=== PATIENT | male | born 1955 | race Caucasian/White ===

== ENCOUNTER → 2016-06-05 | Outpatient (CLI) | payer OTHER ==
[2016-06-05 10:45] LABS: Basophils % (A) 1 %; CH 33.4; CHCM 33.8; Eosinophils # (A) 0.5 k/uL (0-0.7); Eosinophils % (A) 7 %; HCT 45.7 % (39.0-53.0); HDW 2.58; HGB 15.3 gm/dL (13.0-17.5); Luc # (Auto) 0.23; Luc % (Auto) 3; Lymphocytes # (A) 1.8 k/uL (1.0-4.8); Lymphocytes % (A) 25 %; MCH 33.1 pg (25.0-35.0); MCHC 33.4 g/dL (31.0-37.0); MCV 99.1 fL (80.0-100.0); Mean Platelet Volume 6.5; Monocytes # (A) 0.4 k/uL (0-1.0); Monocytes % (A) 6 %; Neutrophils # (A) 4.2 k/uL (1.3-7.7); Neutrophils % (A) 59 %; RBC 4.61 m/uL (4.30-5.90); RDW 13.7 % (11.5-15.5); WBC 7.2 k/uL (3.8-10.6); WBC (Perox) 7.29
[2016-06-05 10:54] LABS: Potassium 4.5 mmol/L (3.5-5.1)
== END | disposition home or self-care (01) ==
LOC: LABPAT 09:25
PROVIDERS: ATTEND Surgery
DX: Z01.812 Encounter for preprocedural laboratory examination (principal); Z11.2 Encounter for screening for other bacterial diseases
CPT/HCPCS: 80051; 85025; 87070

== ENCOUNTER 2016-06-10 07:02 | Inpatient (IN) | payer OTHER ==
[~2016-06-10 07:02] MED LIST: DEXAMETHASONE SOD PHOSPHATE 10 MG/ML 1 ML VIAL IV ONE; HEPARIN SODIUM,PORCINE 5,000 UNIT/ML 1 ML VIAL SQ ONE; HYDROmorphone 1 MG/ML 1 ML SYRINGE IVP PRN; LIDOCAINE 1% 20 ML VIAL (10MG/ML) FOR IV START INTRADERMA PRN; MIDAZOLAM 2 MG/2 ML VIAL IV PRN; ONDANSETRON 4 MG/2 ML VIAL IVP ONE; SCOPOLAMINE 1.5MG/72HR PATCH TRANSDERM ONE; SODIUM CHLORIDE 0.9% 1,000 ML IV ONE; ceFAZolin 2 GM in SODIUM CHLORIDE 0.9% 100 ML IVPB ONE
[2016-06-10] MEDS: LACTATED RINGERS 1,000 ML IV SCH (07:28)
[2016-06-10] MEDS ORDERED: ALVIMOPAN 12 MG CAPSULE PO STA (08:11)
[2016-06-10] MEDS ORDERED: METOPROLOL TARTRATE 5 MG/5 ML VIAL IVP ONE (08:17)
[2016-06-10] MEDS ORDERED: fentaNYL (PF) 50 MCG/ML 2 ML AMP IV ONE (08:20)
[2016-06-10] MEDS ORDERED: MIDAZOLAM 2 MG/2 ML VIAL IV ONE (08:20)
[2016-06-10] MEDS ORDERED: PHENYLEPHRINE-0.9% NACL SYG 1 MG/10 ML SYRINGE ONE (08:38)
[2016-06-10] MEDS ORDERED: FUROSEMIDE 10 MG/ML 2 ML VIAL ONE (08:38)
[2016-06-10] MEDS ORDERED: KETAMINE 10 MG/ML 20 ML VIAL ONE (08:38)
[2016-06-10] MEDS ORDERED: fentaNYL (PF) 50 MCG/ML 2 ML AMP ONE (08:38)
[2016-06-10] MEDS ORDERED: NEOSTIGMINE 1 MG/ML 10 ML VIAL ONE (08:38)
[2016-06-10] MEDS ORDERED: ALBUMIN HUMAN 5% 250 ML BOTTLE IVPB ONE (08:38)
[2016-06-10] MEDS ORDERED: ePHEDrine 50 MG/ML 1 ML AMP ONE (08:38)
[2016-06-10] MEDS ORDERED: SUCCINYLCHOLINE CHLORIDE 100 MG/5 ML SYR IV ONE (08:38)
[2016-06-10] MEDS ORDERED: ceFAZolin 1,000 MG VIAL ONE (08:38)
[2016-06-10] MEDS ORDERED: GLYCOPYRROLATE 0.2 MG/ML 2 ML VIAL ONE (08:38)
[2016-06-10] MEDS ORDERED: MIDAZOLAM 2 MG/2 ML VIAL ONE (08:38)
[2016-06-10] MEDS ORDERED: HYDROmorphone (PF) 1 MG/ML ONE (08:38)
[2016-06-10] MEDS ORDERED: SODIUM BICARB 8.4% 50 ML SYR (1 MEQ/ML) ONE (08:38)
[2016-06-10] MEDS ORDERED: LABETALOL 5 MG/ML VIAL MDV ONE (08:38)
[2016-06-10] MEDS ORDERED: hydrALAZINE HCL 20 MG/ML 1 ML VIAL ONE (08:38)
[2016-06-10] MEDS ORDERED: PROPOFOL 10 MG/ML 20 ML VIAL IV ONE (08:38)
[2016-06-10] MEDS ORDERED: ROCURONIUM BROMIDE 10 MG/ML 10 ML VIAL IV ONE (08:38)
[2016-06-10] MEDS ORDERED: LACTATED RINGERS 1,000 ML IV ONE ×4 (09:00→13:48)
[2016-06-10] MEDS ORDERED: NALOXONE 0.4 MG/ML 1 ML VIAL IV PRN (11:17)
[2016-06-10] MEDS ORDERED: BUPIVACAINE (PF) 0.5% 31.3 ML, HYDROmorphone 5 MG in SODIUM CHLORIDE 0.9% 216 ML EPIDURAL PRN (11:17)
[2016-06-10 15:15] LABS: Basophils % (A) 0 %; CH 33.4; CHCM 32.6; Eosinophils % (A) 0 %; HCT 44.8 % (39.0-53.0); HDW 2.44; HGB 14.3 gm/dL (13.0-17.5); Luc # (Auto) 0.07; Luc % (Auto) 1; Lymphocytes # (A) 0.4 k/uL (1.0-4.8); Lymphocytes % (A) 6 %; MCH 32.9 pg (25.0-35.0); MCHC 31.9 g/dL (31.0-37.0); MCV 102.9 fL (80.0-100.0); Macrocytosis Slight; Monocytes # (A) 0.4 k/uL (0-1.0); Monocytes % (A) 5 %; Neutrophils # (A) 6.7 k/uL (1.3-7.7); Neutrophils % (A) 88 %; RBC 4.35 m/uL (4.30-5.90); RDW 14.1 % (11.5-15.5); WBC 7.6 k/uL (3.8-10.6); WBC (Perox) 7.85
[2016-06-10 15:17] LABS: ABG Base Excess -8.4 mmol/L; ABG HCO3 18 mmol/L (21-25); ABG Oxygen Saturation 99.2 % (94-97); ABG PCO2 44 mmHg (35-45); ABG PH 7.24 (7.35-7.45); ABG PO2 349 mmHg (83-108)
[2016-06-10 15:20] LABS: ALT 29 U/L (21-72); AST 19 U/L (17-59); Alkaline Phosphatase 52 U/L (38-126); Anion Gap 11 mmol/L; Blood Urea Nitrogen 23 mg/dL (9-20); Calcium 7.6 mg/dL (8.4-10.2); Carbon Dioxide 22 mmol/L (22-30); Chloride 107 mmol/L (98-107); Glucose 146 mg/dL (74-99); Non-African American GFR(MDRD) >60 (>60 ml/min/1.73 sqM); Potassium 4.6 mmol/L (3.5-5.1); Sodium 140 mmol/L (137-145); Total Bilirubin 0.5 mg/dL (0.2-1.3); Total Protein 5.6 g/dL (6.3-8.2)
[2016-06-10] MEDS ORDERED: BENZOCAINE/MENTHOL LOZENG 1 EACH LOZENGE MUCOUS MEM PRN (18:43)
--- NOTE | 2016-06-10 18:56 | P.OP ---
Date of Procedure: 06/10/16 Preoperative Diagnosis: Incisional hernia, right inguinal hernia Postoperative Diagnosis: Incisional hernia, unilateral inguinal hernia, left cord lipoma Procedure(s) Performed: 1-Exploratory laparotomy, 2-lysis of adhesions, 3-reduction of inguinal hernia contents (small bowel ) 4-repair of incisional and inguinal hernia with 2 (30 x 30 cm) meshes 5-Bilateral myofascial flap advancement 6-Mobilization of the urinary bladder 7- Placement of harrison catheter ( perforemed by Dr Mabry. 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 bilateral myofascial flaps were created,and urinary bladder was mobilized Posterior fascia closed with 2 0 PDS bard soft mesh was placed. mesh secured with pubic bone, transfascial sutures and superior stitch with the fascia 2 drains placed above the mesh. Anterior fascia closed with 1 stratafix Small subcutaneous flaps created for skin closure Right upper drain sutured with ethibond is subcutaneous Prevena dressing placed. As Ms. 61-year-old male who had a previous attempted inguinal hernia repair that required bowel resection. Ultimately that led to an incisional hernia and a very large inguinal hernia that contained significant amount of small bowel. His been going on for multiple years. He presented to me for hernia repair. After counseling, weight loss of approximately 30 pounds, quitting smoking the patient was cleared by cardiology and deemed ready for surgery. Is brought for the surgery on 06/10/2016. Was identified in the preop operating holding area informed consent was obtained. Risks included injury to the bowel bowel resection and colostomy creation injury to the testicle possible removal of the testicle. The plan was to do both incisional hernia and inguinal hernia to the abdominal approach. The details were explained to the patient patient understood. He was taken the operating room placed in supine position given general anesthesia with endotracheal intubation. Appropriate IV antibiotics have been given as well as from her prophylaxis. This time attention was turned to placing the Harrison catheter. The penis was not properly visible due to the very large size of the inguinal hernia. Once the penis was identified initial attempts were made to place the catheter but they were not possible. At this time intraoperative consultation from Dr. Mohamud came or was made any kind the placed the Harrison catheter please see his dictation for this part was Harrison catheter had been placed the abdomen prepped and draped in the usual sterile surgical fashion extending from the nipple line all the way to the thighs including the scrotum. Midline was midline was identified and incision was made superior to the previous surgery site with the help of a 10 blade the skin and subcu tissue all the way to the fascia and the abdominal cavity was entered. Incisions Superior to the xiphisternum and inferiorly all the way down to the pubis avoiding intra-abdominal adhesions which were taken down so as to identify structures in the inside. Once that was done and with appropriate retraction attention was turned towards the right lower quadrant where there was an inguinal hernia. In spite of pressure from the outside was not being reduced. At this time the bowel was gently pulled on and completely delivered thus delivering approximately a third of the small bowel from this hernia. The entire small bowel was run and it was all viable without any problems there is minimal scar tissue in the base there were no other lesions that needed to be taken down. At this time a Bookwalter was placed for retraction. Attention was turned to the right rectus and incision was made 1.5 cm lateral to the linea alba on the abdominal side of the rectus. Once the fascia was incised and the rectus was exposed and this was extended all the way superiorly to this point of confluence and inferiorly to the point where there was inferior to the semilunar line. Once the posterior rectus sheath had been identified like this muscle was gently swept away us identify the neurovascular bundles. Half centimeter medial to the neurovascular bundle incision was made with the help of electrocautery thus cutting through posterior leaflet of the internal oblique and exposing the transversalis fascia and muscle. Once this plane was entered was completed it was opened up and meticulous E dissected off all the way from the xiphisternum down to the pubic tubercle preperitoneal plane was created in the right lower quadrant/identify the hernia sac which was mobilized and pulled upwards and dissected free of the cord structures. It was inverted and electronically cord. It into the midline sutures. Once the right- sided been appropriately mobilized it was noted that there was still some tension and therefore the urinary bladder had to be mobilized for the inferior flap to be pulled up. Attention was turned to the left side where after entering the retrorectus for plane in a fashion similar to the right transverse abdominis release was also performed on that side a similar fashion to the right extending all the way superiorly to the point of confluence. And inferiorly to the pubic tubercle and bone. Once that had been done the bowel was run again his major that there was no further adhesions. Posterior fascia was closed in a running fashion using 2-0 PDS. Any holes in the peritoneum were closed with 2 and 3-0 Vicryl. 30 x 30 bard mesh was then introduced in the upper part it was sutured to the uncinate superiorly. Transverse sutures placed in the side and the right and left upper quadrants. A second 30 x 30 bard mesh in a evelyn form was placed inferiorly slower lower pointed end was sutured to the pubic tubercle lateral laterally to extended all the way to the psoas muscle transfacial sutures were placed laterally. This piece of mesh was also sutured to the superior piece of mesh with interrupted PDS sutures. Transfacial sutures were pulled and sutured tightly with the mesh being in appropriate position once that was done midline incision was closed with running oh Stratus effects. The hernia sac and the lower part of the abdomen had to be excised for this to be completed. Prior to closure pains was placed on top of the mesh were tacked the right and left lower quadrants. To be able to close the skin and skin flaps were created subcu drainage drain was placed and brought out through the right lower quadrant above the other drain. The midline was stapled shut. WERE connected to SAMPSON bulbs. Previna dressing was applied. The patient was left on the ventilator as the length the procedure was very long. Harrison catheter and NG tube was left in place. Patient's urine output intraoperatively was little low but postoperatively immediately. He started putting out good amount of urine. He was taken to recovery room in stable but critical condition
--- NOTE | 2016-06-10 19:30 | PCN ---
DATE OF PROCEDURE: 06/10/2016 POSTOPERATIVE DIAGNOSIS: Inability to insert urethral catheter. POSTOPERATIVE DIAGNOSIS: Inability to insert urethral catheter secondary to phimosis and meatal stenosis. PROCEDURE: Dilation of meatal stenosis and placement of urethral catheter. The patient is a 61-year-old male with an umbilical and inguinal hernia who is undergoing hernia repair performed by Dr. Mercedes this morning. A catheter was attempted to be placed prior to the procedure to decompress the bladder, but this proved impossible, as it was impossible to visualize the urethral meatus directly or advance a 14 Yemeni catheter through it. Urologic consultation was obtained after the patient had been given anesthesia and was supine on the operating room table. PROCEDURE: The patient had previously been prepped with Betadine solution and was draped in a sterile fashion. The patient had moderate phimosis and the stenosis at the distal foreskin was gently spread with a hemostat. It was possible to identify the urethral meatus visually, but attempts at passage of a 14 Yemeni catheter proved impossible. The meatus was then gently dilated with a hemostat. A 0.035 straight Glidewire was advanced through the urethral meatus and up into the bladder. A 14 Yemeni Garcia catheter was modified with a slit at its end and the catheter was advanced over the Glidewire through the stenotic area at the meatus and into the bladder. Clear urine drained from the bladder. The patient tolerated procedure well. The remainder of the procedure will be performed by Dr. Mercedes. The patient has an epidural anesthetic and it is anticipated that the catheter will remain in place until the anesthetic has worn off. OSKAR
[2016-06-10 19:44] LABS: ABG Base Excess -5.6 mmol/L; ABG HCO3 26 mmol/L (21-25); ABG Oxygen Saturation 97.6 % (94-97); ABG PCO2 83 mmHg (35-45); ABG PH 7.13 (7.35-7.45); ABG PO2 119 mmHg (83-108)
[2016-06-10] MEDS ORDERED: MIDAZOLAM 2 MG/2 ML VIAL IVP ONE ×2 (20:25→21:20)
[2016-06-10] MEDS ORDERED: FAMOTIDINE 20 MG/2 ML VIAL IVP ONE (21:00)
[2016-06-10 21:09] LABS: ABG Base Excess -6.5 mmol/L; ABG HCO3 21 mmol/L (21-25); ABG PCO2 52 mmHg (35-45); ABG PH 7.23 (7.35-7.45); ABG PO2 82 mmHg (83-108)
--- NOTE | 2016-06-10 21:13 | XR ---
EXAMINATION TYPE: XR chest 1V portable DATE OF EXAM: 06/10/2016 8:48 PM COMPARISON: 04/13/2012 HISTORY: Tube placement TECHNIQUE: Single frontal view of the chest is obtained. FINDINGS: Heart and mediastinum appear normal. Lungs are clear. Endotracheal tube and nasogastric tu be appear in good position. There are chest leads. Bony thorax is intact. IMPRESSION: Tubing is in good position. There is clearing of infiltrate in both lower lobes compared to old exam. No heart failure.
[2016-06-10 21:39] LABS: Glucose,Whole Blood 174 mg/dL (75-99)
[2016-06-10] MEDS: PROPOFOL 500 MG in EMPTY BAG 1 BAG IV SCH ×2 (21:41→23:16)
[2016-06-10] MEDS ORDERED: HEPARIN SODIUM,PORCINE 5,000 UNIT/ML 1 ML VIAL SQ ONE (23:00)
[2016-06-10] MEDS: IPRATROPIUM-ALBUTEROL 3 ML NEB INHALATION SCH (23:17)
[2016-06-11 02:11] LABS: Glucose,Whole Blood 135 mg/dL (75-99)
[2016-06-11] MEDS ORDERED: INSULIN LISPRO (humaLOG) 300 UNIT/3 ML VIAL SQ ONE (02:13)
[2016-06-11] MEDS: IPRATROPIUM-ALBUTEROL 3 ML NEB INHALATION SCH ×7 (03:10→23:30)
[2016-06-11 05:33] LABS: Basophils % (A) 0 %; CHCM 32.6; Eosinophils % (A) 0 %; HCT 47.3 % (39.0-53.0); HDW 2.45; HGB 15.3 gm/dL (13.0-17.5); Luc # (Auto) 0.17; Luc % (Auto) 3; Lymphocytes # (A) 0.5 k/uL (1.0-4.8); Lymphocytes % (A) 7 %; MCH 32.9 pg (25.0-35.0); MCHC 32.3 g/dL (31.0-37.0); Macrocytosis Slight; Mean Platelet Volume 6.7; Monocytes # (A) 0.4 k/uL (0-1.0); Monocytes % (A) 6 %; Neutrophils # (A) 5.8 k/uL (1.3-7.7); Neutrophils % (A) 84 %; RBC 4.63 m/uL (4.30-5.90); RDW 14.3 % (11.5-15.5); WBC 6.9 k/uL (3.8-10.6); WBC (Perox) 6.96
[2016-06-11 06:15] LABS: Calcium 8.2 mg/dL (8.4-10.2); Potassium 5.4 mmol/L (3.5-5.1)
[2016-06-11] MEDS ORDERED: PROPOFOL 10 MG/ML 50 ML VIAL IV ONE ×2 (07:08→10:28)
[2016-06-11] MEDS: amLODIPine 10 MG TAB PO SCH (07:51)
--- NOTE | 2016-06-11 07:54 | XR ---
EXAMINATION TYPE: XR chest 1V portable DATE OF EXAM: 06/11/2016 7:04 AM COMPARISON: 06/10/2016 INDICATION: Difficulty breathing TECHNIQUE: Single frontal view of the chest is obtained. FINDINGS: The heart size is normal. The pulmonary vasculature is normal. The lungs are clear. Endotracheal tube is present with tip above the allyn. Nasogastric tube transverses the thorax. IMPRESSION: 1. No acute pulmonary process.
[2016-06-11] MEDS ORDERED: HEPARIN SODIUM,PORCINE 5,000 UNIT/ML 1 ML VIAL SQ SCH (08:00)
[2016-06-11] MEDS ORDERED: FAMOTIDINE 20 MG/2 ML VIAL IV SCH (09:00)
[2016-06-11] MEDS ORDERED: ALVIMOPAN 12 MG CAPSULE PO SCH (09:00)
[2016-06-11] MEDS: ATENOLOL 50 MG TAB PO SCH (09:21)
[2016-06-11 09:48] LABS: Glucose,Whole Blood 131 mg/dL (75-99)
--- NOTE | 2016-06-11 10:03 | P.CNPUL ---
History of Present Illness Consult date: 06/11/16 Reason for consult: other Chief complaint: Postoperative respiratory failure and ventilator management History of present illness: 61-year-old male who I'm asked to see in the recovery/extended stay area. He apparently underwent a prolonged surgery yesterday for abdominal hernia repair. He did have a exploratory laparotomy with mesh placement. The patient was on the ventilator. I was called throughout the night for vent settings and other things to take care of this patient. Anyway the patient still down in the right extended stay area. We made some vent changes this morning. Blood gases were noted this morning. The patient remains on propofol for sedation and IV fluids. The surgery was done by one of the general surgeons. No H&P on the chart as yet. He appears to have a history of hypertension because he was on amlodipine and atenolol at home. He has no known ALLERGIES. His medications here are noted. Include DuoNeb nebs every 4 hours and Coreg amlodipine and atenolol Cepacol spray bupivacaine famotidine heparin lactated Ringer's lidocaine Narcan and propofol for sedation. Review of Systems ROS unobtainable: due to endotracheal tube Past Medical History Past Medical History: Hypertension History of Any Multi-Drug Resistant Organisms: None Reported Past Surgical History: Hernia Repair Past Anesthesia/Blood Transfusion Reactions: No Reported Reaction Past Psychological History: No Psychological Hx Reported Smoking Status: Former smoker Past Alcohol Use History: None Reported Additional Past Alcohol Use History / Comment(s): quit smoking 2016, 2 PPD for 50 yrs Past Drug Use History: None Reported - Past Family History Mother Family Medical History: No Reported History Medications and Allergies Home Medications Medication Instructions Recorded Confirmed Type Atenolol [Tenormin] 50 mg PO DAILY 06/04/16 06/10/16 History amLODIPine BESYLATE [Norvasc] 10 mg PO DAILY 06/04/16 06/10/16 History Allergies Allergy/AdvReac Type Severity Reaction Status Date / Time No Known Allergies Allergy Verified 06/10/16 07:12 Physical Exam Osteopathic Statement: *. No significant issues noted on an osteopathic structural exam other than those noted in the History and Physical/Consult. Vitals: Vital Signs Temp Pulse Pulse Resp BP BP Pulse Ox 06/11/16 09:30 77 28 H 151/63 141/74 96 06/11/16 08:30 77 28 H 101/48 111/72 99 04/20/17 08:24 77 06/11/16 07:30 78 28 H 114/71 102/49 99 06/11/16 06:30 80 27 H 100/47 117/63 97 06/11/16 05:39 97 F L 77 24 106/48 119/65 98 06/11/16 03:58 77 24 107/48 111/66 97 06/11/16 03:08 100 06/11/16 02:56 98 06/11/16 02:44 83 24 113/60 117/53 99 06/11/16 02:00 97 F L 83 24 115/52 115/60 99 06/11/16 01:00 82 24 119/53 111/67 99 06/11/16 00:01 80 24 112/67 112/78 99 06/10/16 23:30 81 24 116/53 111/63 99 06/10/16 23:28 82 06/10/16 23:17 81 06/10/16 22:30 82 16 113/50 112/64 94 L 06/10/16 21:30 83 16 110/63 122/65 92 L 06/10/16 20:30 82 16 117/65 126/78 92 L 06/10/16 20:15 80 16 124/61 128/65 93 L 06/10/16 20:00 82 16 119/60 128/76 94 L 06/10/16 19:45 82 16 118/62 130/76 92 L 06/10/16 19:30 80 14 122/60 133/59 90 L 06/10/16 19:09 99 F 82 15 120/56 133/76 92 L Intake and Output 06/10/16 06/11/16 06/11/16 22:59 06:59 14:59 Intake Total 600 140 Output Total 450 550 Balance 150 -410 Intake: IV 600 140 Output: Urine 300 550 Estimated Blood Loss 150 The patient is currently sedated. Oral gastric tube and endotracheal tube noted. HEENT examination is grossly unremarkable. Mucous membranes are moist. Neck supple. Full range of motion. No adenopathy. Cardio vascular examination reveals regular rhythm rate. S1-S2 normal. No distinct murmur noted. Lungs reveal relatively clear breath sounds. A few scattered rhonchi. Abdomen is obese. Bowel sounds are heard. Abdominal binder in place. Extremities are intact. No cyanosis noted. Skin without rash or lesion. Because of his sedation, neurologic examination cannot be adequately performed. Results - Laboratory Findings CBC and BMP: 06/11/16 05:00 06/11/16 05:00 ABG ABG pH 7.23 (7.35-7.45) L 06/10/16 20:45 ABG pCO2 52 mmHg (35-45) H 06/10/16 20:45 ABG pO2 82 mmHg (83-108) L 06/10/16 20:45 ABG O2 Saturation 96.0 % (94-97) 06/10/16 20:45 Abnormal lab findings: Abnormal Labs 06/10/16 06/10/16 06/10/16 14:35 14:35 14:35 MCV 102.9 H Lymphocytes # 0.4 L ABG pH 7.24 L ABG pCO2 ABG pO2 349 H ABG HCO3 18 L ABG O2 Saturation 99.2 H ABG Hematocrit Potassium BUN 23 H Creatinine Glucose 146 H POC Glucose (mg/dL) Calcium 7.6 L Total Protein 5.6 L 06/10/16 06/10/16 06/10/16 19:35 20:45 21:19 MCV Lymphocytes # ABG pH 7.13 L* 7.23 L ABG pCO2 83 H* 52 H ABG pO2 119 H 82 L ABG HCO3 26 H ABG O2 Saturation 97.6 H ABG Hematocrit 48 H Potassium BUN Creatinine Glucose POC Glucose (mg/dL) 174 H Calcium Total Protein 06/11/16 06/11/16 06/11/16 02:09 05:00 05:00 MCV 102.0 H Lymphocytes # 0.5 L ABG pH ABG pCO2 ABG pO2 ABG HCO3 ABG O2 Saturation ABG Hematocrit Potassium 5.4 H BUN 35 H Creatinine 1.70 H Glucose 142 H POC Glucose (mg/dL) 135 H Calcium 8.2 L Total Protein 06/11/16 09:41 MCV Lymphocytes # ABG pH ABG pCO2 ABG pO2 ABG HCO3 ABG O2 Saturation ABG Hematocrit Potassium BUN Creatinine Glucose POC Glucose (mg/dL) 131 H Calcium Total Protein - Diagnostic Findings Chest x-ray: image reviewed Assessment and Plan (1) Hypoxemic respiratory failure, chronic Status: Acute (2) Postoperative respiratory failure Status: Acute (3) Hypertension Status: Acute (4) Status post hernia repair Status: Acute Plan: Plan dated 06/11/2016 The patient will be transferred up to the ICU soon as a bed becomes available. We'll continue to follow him closely. We may to been changes this morning. We' ll repeat the blood gases. He is on updrafts. Propofol for sedation. He is getting IV fluids. We'll work closely with the surgeons to see if we can get this patient to this episode. Time with Patient: Greater than 30
[2016-06-11] MEDS ORDERED: BENZOCAINE/MENTHOL LOZENG 1 EACH LOZENGE MUCOUS MEM PRN (10:09)
--- NOTE | 2016-06-11 10:22 | P.GSHP ---
History of Present Illness H&P Date: 06/11/16 Chief Complaint: Swelling in the right groin and anterior abdominal wall Patient presented to me in january 2016 with worsening swelling of the groin. He had a previous attempt at inguinal hernia repair at which time an exploratory laparotomy with bowel resection was performed. The inguinal hernia swelling has been worsening progressively over the last few years. He is also developed swelling and herniation in the midline smokes 2 packs per day. He is known history of previous aspergillosis. He has not had any symptoms of bowel obstruction the past. Over a period of 3 months the patient underwent approximately 40 pounds weight loss. He quit smoking and was smoke-free for 2 months prior to the surgery. He is evaluated with a tieing machine operator and was cleared for this surgery with only being on antihypertensive medications. He has never had any problems with physical activity except being restricted by his significant hernia. The patient underwent exploratory laparotomy, bilateral transversus abdominous release and myofascial advancement so as to accommodate for the bowel which was reduced from the large scrotal hernia which was also reduced. Intraoperatively the patient's urine output was low but without immediately postoperatively. He was not extubated and has been on the vent support overnight. He still sedated on propofol's morning. - Constitutional Constitutional: Reports chronic pain, Denies anorexia, Denies lethargy, Denies malaise, Denies night sweats - EENT Eyes: denies blurred vision, denies pain Ears, nose, mouth and throat: Denies headache, Denies sore throat - Respiratory Respiratory: Reports cough, Denies congestion, Denies dyspnea - Gastrointestinal Gastrointestinal: Reports abdominal pain, Reports nausea, Denies vomiting - Genitourinary (Male) Genitourinary: Denies dysuria, Denies hematuria - Musculoskeletal Musculoskeletal: Denies myalgias - Integumentary Integumentary: Denies pruritus, Denies rash Past Medical History Past Medical History: Hypertension Additional Past Medical History / Comment(s): Previous history of exploratory laparotomy at the time of inguinal hernia repair History of Any Multi-Drug Resistant Organisms: None Reported Past Surgical History: Hernia Repair Past Anesthesia/Blood Transfusion Reactions: No Reported Reaction Past Psychological History: No Psychological Hx Reported Smoking Status: Former smoker Past Alcohol Use History: None Reported Additional Past Alcohol Use History / Comment(s): quit smoking 2016, 2 PPD for 50 yrs Past Drug Use History: None Reported - Past Family History Mother Family Medical History: No Reported History Medications and Allergies Home Medications Medication Instructions Recorded Confirmed Type Atenolol [Tenormin] 50 mg PO DAILY 06/04/16 06/10/16 History amLODIPine BESYLATE [Norvasc] 10 mg PO DAILY 06/04/16 06/10/16 History Allergies Allergy/AdvReac Type Severity Reaction Status Date / Time No Known Allergies Allergy Verified 06/10/16 07:12 Surgical - Exam Vital Signs Temp Pulse Resp BP Pulse Ox 97.1 F L 89 16 160/107 93 L 06/10/16 07:10 06/10/16 07:10 06/10/16 07:10 06/10/16 07:10 06/10/16 07:10 - General well developed, well nourished, no distress - Eyes PERRL, no icteric, no deviation - ENT normal pinna, normal nares, normal mucosa, no hearing loss - Neck no masses, trachea midline - Respiratory normal respiratory effort, clear to auscultation - Cardiovascular Rhythm: regular - Abdomen Patient is soft abdomen with significant diastases and midline incision in the lower part. He has a very large incarcerated right inguinal hernia and I cannot appreciate and there is a hernia not on the left side because the whole lower pubic area extends and is swollen up and there is a very large swollen scrotum without any injury or decubitus. The midline incision and the fascial margins are tender but reducible. When the patient is asked to sit up its very prominent Results - Labs 06/11/16 05:00 06/11/16 05:00 Abnormal Lab Results - Last 24 Hours (Table) 06/10/16 06/10/16 06/10/16 Range/Units 14:35 14:35 14:35 MCV 102.9 H (80.0-100.0) fL Lymphocytes # 0.4 L (1.0-4.8) k/uL ABG pH 7.24 L (7.35-7.45) ABG pCO2 (35-45) mmHg ABG pO2 349 H (83-108) mmHg ABG HCO3 18 L (21-25) mmol/L ABG O2 Saturation 99.2 H (94-97) % ABG Hematocrit (34.0-46.0) % Potassium (3.5-5.1) mmol/L BUN 23 H (9-20) mg/dL Creatinine (0.66-1.25) mg/dL Glucose 146 H (74-99) mg/dL POC Glucose (mg/dL) (75-99) mg/dL Calcium 7.6 L (8.4-10.2) mg/dL Total Protein 5.6 L (6.3-8.2) g/dL 06/10/16 06/10/16 06/10/16 Range/Units 19:35 20:45 21:19 MCV (80.0-100.0) fL Lymphocytes # (1.0-4.8) k/uL ABG pH 7.13 L* 7.23 L (7.35-7.45) ABG pCO2 83 H* 52 H (35-45) mmHg ABG pO2 119 H 82 L (83-108) mmHg ABG HCO3 26 H (21-25) mmol/L ABG O2 Saturation 97.6 H (94-97) % ABG Hematocrit 48 H (34.0-46.0) % Potassium (3.5-5.1) mmol/L BUN (9-20) mg/dL Creatinine (0.66-1.25) mg/dL Glucose (74-99) mg/dL POC Glucose (mg/dL) 174 H (75-99) mg/dL Calcium (8.4-10.2) mg/dL Total Protein (6.3-8.2) g/dL 06/11/16 06/11/16 06/11/16 Range/Units 02:09 05:00 05:00 MCV 102.0 H (80.0-100.0) fL Lymphocytes # 0.5 L (1.0-4.8) k/uL ABG pH (7.35-7.45) ABG pCO2 (35-45) mmHg ABG pO2 (83-108) mmHg ABG HCO3 (21-25) mmol/L ABG O2 Saturation (94-97) % ABG Hematocrit (34.0-46.0) % Potassium 5.4 H (3.5-5.1) mmol/L BUN 35 H (9-20) mg/dL Creatinine 1.70 H (0.66-1.25) mg/dL Glucose 142 H (74-99) mg/dL POC Glucose (mg/dL) 135 H (75-99) mg/dL Calcium 8.2 L (8.4-10.2) mg/dL Total Protein (6.3-8.2) g/dL 06/11/16 Range/Units 09:41 MCV (80.0-100.0) fL Lymphocytes # (1.0-4.8) k/uL ABG pH (7.35-7.45) ABG pCO2 (35-45) mmHg ABG pO2 (83-108) mmHg ABG HCO3 (21-25) mmol/L ABG O2 Saturation (94-97) % ABG Hematocrit (34.0-46.0) % Potassium (3.5-5.1) mmol/L BUN (9-20) mg/dL Creatinine (0.66-1.25) mg/dL Glucose (74-99) mg/dL POC Glucose (mg/dL) 131 H (75-99) mg/dL Calcium (8.4-10.2) mg/dL Total Protein (6.3-8.2) g/dL Diabetes panel 06/10/16 06/11/16 Range/Units 14:35 05:00 Sodium 140 139 (137-145) mmol/L Potassium 4.6 5.4 H (3.5-5.1) mmol/L Chloride 107 105 (98-107) mmol/L Carbon Dioxide 22 26 (22-30) mmol/L BUN 23 H 35 H (9-20) mg/dL Creatinine 1.23 1.70 H (0.66-1.25) mg/dL Glucose 146 H 142 H (74-99) mg/dL Calcium 7.6 L 8.2 L (8.4-10.2) mg/dL AST 19 (17-59) U/L ALT 29 (21-72) U/L Alkaline Phosphatase 52 (38-126) U/L Total Protein 5.6 L (6.3-8.2) g/dL Albumin 3.5 (3.5-5.0) g/dL Calcium panel 06/10/16 06/11/16 Range/Units 14:35 05:00 Calcium 7.6 L 8.2 L (8.4-10.2) mg/dL Albumin 3.5 (3.5-5.0) g/dL Pituitary panel 06/10/16 06/11/16 Range/Units 14:35 05:00 Sodium 140 139 (137-145) mmol/L Potassium 4.6 5.4 H (3.5-5.1) mmol/L Chloride 107 105 (98-107) mmol/L Carbon Dioxide 22 26 (22-30) mmol/L BUN 23 H 35 H (9-20) mg/dL Creatinine 1.23 1.70 H (0.66-1.25) mg/dL Glucose 146 H 142 H (74-99) mg/dL Calcium 7.6 L 8.2 L (8.4-10.2) mg/dL Adrenal panel 06/10/16 06/11/16 Range/Units 14:35 05:00 Sodium 140 139 (137-145) mmol/L Potassium 4.6 5.4 H (3.5-5.1) mmol/L Chloride 107 105 (98-107) mmol/L Carbon Dioxide 22 26 (22-30) mmol/L BUN 23 H 35 H (9-20) mg/dL Creatinine 1.23 1.70 H (0.66-1.25) mg/dL Glucose 146 H 142 H (74-99) mg/dL Calcium 7.6 L 8.2 L (8.4-10.2) mg/dL Total Bilirubin 0.5 (0.2-1.3) mg/dL AST 19 (17-59) U/L ALT 29 (21-72) U/L Alkaline Phosphatase 52 (38-126) U/L Total Protein 5.6 L (6.3-8.2) g/dL Albumin 3.5 (3.5-5.0) g/dL - Imaging Additional studies: 80 scan of the abdomen and pelvis was done and it showed large diastases with herniation measuring 11 x 14 cm in the midline, the patient had 20 cm right scrotal hernia containing approximately third of the small bowel Assessment and Plan (1) Incisional hernia Status: Acute (2) Inguinal hernia Status: Acute (3) Hypertension Status: Acute Plan: This H&P is being dictated after the surgery because there was no other in the chart except my office dictation. At this point the patient was intubated on the vent status post hernia repair. His urine output has been good. His be adequate and has been noted to go up a bit probably prerenal ischemia. Management of the ventilation management per Dr. De La Cruz. From the surgical standpoint appropriate drainage of the JPs was noted 40 mL of serous sinus bilaterally. Prerenal dressing is in place. It is not soaked. Garcia cath change in place. Medical management per Dr. Adan and Dr. Hopkins
[2016-06-11 11:16] LABS: Calcium 8.1 mg/dL (8.4-10.2); Phosphorous 4.1 mg/dL (2.5-4.5); Potassium 4.8 mmol/L (3.5-5.1)
[2016-06-11] MEDS: ENOXAPARIN 40 MG/0.4 ML SYRINGE SQ SCH (12:01)
[2016-06-11 12:06] LABS: Glucose,Whole Blood 140 mg/dL (75-99)
[2016-06-11 12:32] LABS: Total Bilirubin 0.6 mg/dL (0.2-1.3); Total Protein 5.5 g/dL (6.3-8.2)
[2016-06-11] MEDS ORDERED: MIDAZOLAM 2 MG/2 ML VIAL IVP ONE (14:00)
[2016-06-11] MEDS: LACTATED RINGERS 1,000 ML IV SCH (14:18)
[2016-06-11 18:10] LABS: Glucose,Whole Blood 109 mg/dL (75-99)
[2016-06-11] MEDS: ALVIMOPAN 12 MG CAPSULE PO SCH ×2 (20:20→20:57)
[2016-06-11] MEDS: PROPOFOL 500 MG in EMPTY BAG 1 BAG IV SCH ×3 (20:20→23:49)
[2016-06-11] MEDS: CHLORHEXIDINE GLUCONATE 15 ML CUP MUCOUS MEM SCH (20:39)
--- NOTE | 2016-06-11 21:50 | CONS ---
DATE OF CONSULTATION: 06/10/2016 REASON FOR CONSULTATION: Medical management requested Dr. Mercedes. CONSULTATION: This is a 61-year-old patient who underwent large abdominal hernia repair ( ) surgery by Dr. Mercedes. Patient has [address] and a wound V.A.C. in place. Post procedure the patient is in the ICU on the ventilator with FiO2 of 50 and PEEP of 5; also on propofol. Patient's only known history is that of hypertension and possibly COPD. Patient has been a long-standing smoker. REVIEW OF SYSTEMS: Patient is intubated. PAST MEDICAL HISTORY: ( ) COPD, hypertension. PAST SURGICAL HISTORY: Hernia repair. HOME MEDICATIONS: 1. Norvasc 10 mg daily. 2. Tenormin 50 mg a day. ALLERGIES: NONE. SOCIAL HISTORY: Patient smoked 2 packs a day for 50 years; stopped sometime earlier in the year. FAMILY HISTORY: Cannot obtain. On examination, temperature 97, pulse 86, respiration 28, blood pressure 124/60, pulse ox 97% on ventilator. GENERAL APPEARANCE: Lying in bed. Intubated. EYES: Pupils equal. Conjunctivae normal. HEENT: Endotracheal tube in place. NECK: JVD not raised. Mass not palpable. RESPIRATORY: Effort normal. LUNGS: Diminished breath sounds. CARDIOVASCULAR: First and second sounds normal. No edema. ABDOMEN: Dressing in place with a wound V.A.C. in place with [address] Liver and spleen not palpable. LYMPHATIC: No lymph node palpable in neck or axillae. PSYCHIATRY: Unable to assess. NEUROLOGICAL: Pupils equal. Does respond to pain. INVESTIGATIONS: White count 7.6, hemoglobin 14.3. Potassium 4.6. BUN 23, creatinine 1.23. Chest x-ray: nil acute. ASSESSMENT: 1. Status post abdominal/inguinal hernia repair, open type, with [address] and wound V[address]A.C. in place. 2. Chronic obstructive pulmonary disease in an ex-smoker. 3. Essential hypertension. 4. Postoperative on ventilator support. PLAN: Patient is put back on Norvasc and Tenormin, put on breathing treatments, getting lactated Ringer's and propofol. No family is still at the bedside. Will follow closely. Thank you, Dr. Mercedes.
[2016-06-12 00:21] LABS: Glucose,Whole Blood 104 mg/dL (75-99)
[2016-06-12] MEDS: PROPOFOL 500 MG in EMPTY BAG 1 BAG IV SCH (01:51)
[2016-06-12] MEDS: IPRATROPIUM-ALBUTEROL 3 ML NEB INHALATION SCH ×2 (03:45→09:18)
[2016-06-12 04:18] LABS: Basophils % (A) 0 %; CHCM 32.7; Eosinophils % (A) 0 %; HCT 40.3 % (39.0-53.0); HDW 2.42; HGB 12.9 gm/dL (13.0-17.5); Luc # (Auto) 0.14; Luc % (Auto) 3; Lymphocytes # (A) 0.5 k/uL (1.0-4.8); Lymphocytes % (A) 10 %; MCH 32.5 pg (25.0-35.0); MCV 101.7 fL (80.0-100.0); Macrocytosis Slight; Mean Platelet Volume 7.4; Monocytes # (A) 0.3 k/uL (0-1.0); Monocytes % (A) 6 %; Neutrophils % (A) 80 %; RBC 3.97 m/uL (4.30-5.90); RDW 14.3 % (11.5-15.5)
[2016-06-12 04:53] LABS: ALT 36 U/L (21-72); AST 83 U/L (17-59); Alkaline Phosphatase 49 U/L (38-126); Anion Gap 5 mmol/L; Blood Urea Nitrogen 35 mg/dL (9-20); Calcium 8.1 mg/dL (8.4-10.2); Carbon Dioxide 27 mmol/L (22-30); Chloride 107 mmol/L (98-107); Glucose 111 mg/dL (74-99); Magnesium 2.1 mg/dL (1.6-2.3); Non-African American GFR(MDRD) >60 (>60 ml/min/1.73 sqM); Phosphorous 2.9 mg/dL (2.5-4.5); Potassium 4.5 mmol/L (3.5-5.1); Sodium 139 mmol/L (137-145); Total Bilirubin 0.5 mg/dL (0.2-1.3); Total Protein 4.8 g/dL (6.3-8.2)
[2016-06-12] MEDS: LACTATED RINGERS 1,000 ML IV SCH (05:03)
[2016-06-12 05:24] LABS: ABG PH 7.42 (7.35-7.45)
[2016-06-12 05:25] LABS: ABG Base Excess 0.9 mmol/L; ABG HCO3 25 mmol/L (21-25); ABG PCO2 40 mmHg (35-45); ABG PO2 76 mmHg (83-108); ABG TCO2 26 mmol/L (19-24)
--- NOTE | 2016-06-12 07:18 | XR ---
EXAMINATION TYPE: XR chest 1V portable DATE OF EXAM: 06/12/2016 6:35 AM Comparison: 06/11/2016 Clinical History: 61 year-old male tube placement Findings: ET tube is satisfactory with tip just below the level of the medial clavicular heads. NG tube courses below the diaphragm but the distal aspect is not well seen. Heart remains upper limits of normal in size. Aorta and pulmonary vasculature within normal limits. Some minimal patchy left basilar densitie s. No significant pleural effusion. Impression: Some minimal patchy left basilar atelectasis or infiltrate.
--- NOTE | 2016-06-12 08:55 | P.PN ---
Subjective Progress note dated 06/12/2016 61-year-old male who I saw yesterday in extended stay. He underwent a prolonged surgery the day before for abdominal hernia repair. The surgery lasted 11 hours. The patient was on the ventilator when I saw him yesterday still remains on the ventilator. We will able to move him to the ICU yesterday. Currently he seems be doing relatively well. That appointment 9 IV at 75 mL an hour. His vent settings include the assist control mode rate of 28 Atabrine for 50 FiO2 50% and 5 of PEEP. Blood gases show a PaO2 of 76 a pCO2 40 and a pH of 7.42. Patient seemed relatively comfortable. Eyes are open. He is not on any sedation. I've asked the respiratory therapist put him on PSV 5 CPAP of 5 and get some weaning parameters and do a cuff leak test. The weaning parameters will include a tidal volume capacity respiratory rate negative inspiratory force minute volume and a rapid shallow breathing index. His numbers look good. We' ll go ahead and give him a trial of extubation. Objective - Vital Signs Vital signs: Vital Signs Temp 98 F 06/12/16 04:00 Pulse 87 06/12/16 07:00 Resp 20 06/12/16 07:00 BP 142/84 06/12/16 05:00 Pulse Ox 96 06/12/16 07:00 Intake & Output 06/11/16 06/12/16 06/12/16 18:59 06:59 18:59 Intake Total 324 1169.456 Output Total 400 1035 Balance -76 134.456 Weight 117.7 kg Intake: IV 324 1005 0.9 NS 300 975 Bupivacaine (Pf) 0.5% 31. 24 30 3 ml HYDROmorphone 5 mg In Sodium Chloride 0.9% 216 ml @ Per Protocol EPIDURAL .Q0M PRN Rx#: [id number] Intake, IV Titration 164.456 Amount Bupivacaine (Pf) 0.5% 31. 12.334 3 ml HYDROmorphone 5 mg In Sodium Chloride 0.9% 216 ml @ Per Protocol EPIDURAL .Q0M PRN Rx#: [id number] Propofol 500 mg In Empty 152.122 Bag 1 bag @ Titrate IV . Q0M LETY Rx#:[id number] Output: Urine 400 1035 Other: Voiding Method Indwelling Catheter Indwelling Catheter ABP, PAP, CO, CI - Last Documented Arterial Blood Pressure 121/67 - Exam No acute distress. Currently with the endotracheal tube and NG tube in place. HEENT examination is grossly unremarkable. Mucous membranes are moist. Neck supple. Full range of motion. No adenopathy or thyromegaly. Cardio vascular examination reveals regular rhythm rate. S1 and S2 normal. No S3-S4 or murmur. Lungs are relatively clear. A few scattered rhonchi. No wheezes or crackles. Abdomen soft bowel sounds are heard. Extremities are intact. No cyanosis clubbing or edema. Skin is without rash or lesion. - Labs CBC & Chem 7: 06/12/16 04:00 06/12/16 04:00 Labs: Abnormal Lab Results - Last 24 Hours (Table) 06/11/16 06/11/16 06/11/16 Range/Units 09:41 10:55 11:58 RBC (4.30-5.90) m/uL Hgb (13.0-17.5) gm/dL MCV (80.0-100.0) fL Lymphocytes # (1.0-4.8) k/uL ABG pO2 (83-108) mmHg ABG Total CO2 (19-24) mmol/L BUN 37 H (9-20) mg/dL Creatinine 1.50 H (0.66-1.25) mg/dL Glucose 136 H (74-99) mg/dL POC Glucose (mg/dL) 131 H 140 H (75-99) mg/dL Calcium 8.1 L (8.4-10.2) mg/dL AST (17-59) U/L Total Protein 5.5 L (6.3-8.2) g/dL Albumin 3.3 L (3.5-5.0) g/dL 06/11/16 06/12/16 06/12/16 Range/Units 18:09 00:20 04:00 RBC 3.97 L (4.30-5.90) m/uL Hgb 12.9 L (13.0-17.5) gm/dL MCV 101.7 H (80.0-100.0) fL Lymphocytes # 0.5 L (1.0-4.8) k/uL ABG pO2 (83-108) mmHg ABG Total CO2 (19-24) mmol/L BUN (9-20) mg/dL Creatinine (0.66-1.25) mg/dL Glucose (74-99) mg/dL POC Glucose (mg/dL) 109 H 104 H (75-99) mg/dL Calcium (8.4-10.2) mg/dL AST (17-59) U/L Total Protein (6.3-8.2) g/dL Albumin (3.5-5.0) g/dL 06/12/16 06/12/16 Range/Units 04:00 04:12 RBC (4.30-5.90) m/uL Hgb (13.0-17.5) gm/dL MCV (80.0-100.0) fL Lymphocytes # (1.0-4.8) k/uL ABG pO2 76 L (83-108) mmHg ABG Total CO2 26 H (19-24) mmol/L BUN 35 H (9-20) mg/dL Creatinine (0.66-1.25) mg/dL Glucose 111 H (74-99) mg/dL POC Glucose (mg/dL) (75-99) mg/dL Calcium 8.1 L (8.4-10.2) mg/dL AST 83 H (17-59) U/L Total Protein 4.8 L (6.3-8.2) g/dL Albumin 2.8 L (3.5-5.0) g/dL Assessment and Plan (1) Hypoxemic respiratory failure, chronic Status: Acute (2) Postoperative respiratory failure Status: Acute (3) Hypertension Status: Acute (4) Status post hernia repair Status: Acute Plan: Plan dated 06/11/2016 The patient will be transferred up to the ICU soon as a bed becomes available. We'll continue to follow him closely. We may to been changes this morning. We' ll repeat the blood gases. [facility]. Propofol for sedation. He is getting IV fluids. We'll work closely with the surgeons to see if we can get this patient to this episode. Plan dated 06/12/2016 His blood gases and weaning parameters look good. He had a very low rapid shallow breathing index. He did pass his cuff leak. His minute volume was well below 10 L. Vital capacity and tidal volume measurements are excellent. His negative inspiratory force was -31. The patient will be given a trial of extubation. We'll keep him nothing by mouth. No additional recommendations are made. Prognosis is guarded. Time with Patient: Greater than 30
[2016-06-12] MEDS: ALVIMOPAN 12 MG CAPSULE PO SCH ×2 (09:07→21:27)
[2016-06-12] MEDS: amLODIPine 10 MG TAB PO SCH (09:08)
[2016-06-12] MEDS: ENOXAPARIN 40 MG/0.4 ML SYRINGE SQ SCH (09:08)
[2016-06-12] MEDS: CHLORHEXIDINE GLUCONATE 15 ML CUP MUCOUS MEM SCH (09:08)
[2016-06-12] MEDS: ATENOLOL 50 MG TAB PO SCH (09:08)
[2016-06-12 09:58] LABS: ABG Base Excess 0.9 mmol/L; ABG HCO3 26 mmol/L (21-25); ABG Oxygen Saturation 93.4 % (94-97); ABG PCO2 53 mmHg (35-45); ABG PH 7.32 (7.35-7.45); ABG PO2 75 mmHg (83-108); ABG TCO2 28 mmol/L (19-24)
--- NOTE | 2016-06-12 10:15 | P.PN ---
Progress Note - Text 06/11 292 61-year-old male status post exploratory lap for Dr. Mercedes. Patient has epidural infusion running at 5 mL an hour, intubated sedated. Patient is hemodynamically stable, and able to evaluate pain control. Plan to continue epidural infusion,,
--- NOTE | 2016-06-12 10:18 | P.PN ---
Progress Note - Text 06/12 714am 61-year-old male status post exploratory lap with Dr. Mercedes. Patient in the ICU intubated sedated hemodynamically stable. Patient is on weaning protocol, unable to evaluate pain control. Epidural solution running at 5 mL an hour continue epidural infusion
[2016-06-12] MEDS ORDERED: IPRATROPIUM-ALBUTEROL 3 ML NEB INHALATION PRN (12:00)
[2016-06-12 12:12] LABS: Glucose,Whole Blood 117 mg/dL (75-99)
--- NOTE | 2016-06-12 12:51 | P.PN ---
<Ariane Dalton - Last Filed: 06/12/16 12:41> Subjective A 61-year-old male who being seen in the intensive care unit this morning intubated with the plan for extubation this morning by pulmonology service. Patient underwent on June 11 exploratory laparotomy lysis of adhesions reduction of an inguinal hernia repair with placement of a Garcia catheter performed by urology service patient was noted to have a large indirect inguinal hernia containing approximately one third of the small bowel postprocedure patient was hypotensive and was transferred to the intensive care unit for close monitoring. This morning the blood pressure is 147/77 and heart rate in the 90s patient opens eyes to verbal stimuli Objective - Vital Signs Vital signs: Vital Signs Temp 98 F 06/12/16 04:00 Pulse 93 06/12/16 11:00 Resp 17 06/12/16 11:00 BP 175/86 06/12/16 10:00 Pulse Ox 94 L 06/12/16 11:10 Intake & Output 06/11/16 06/12/16 06/12/16 18:59 06:59 18:59 Intake Total 324 1169.456 360 Output Total 400 1035 250 Balance -76 134.456 110 Weight 117.7 kg Intake: IV 324 1005 300 0.9 NS 300 975 300 Bupivacaine (Pf) 0.5% 31. 24 30 3 ml HYDROmorphone 5 mg In Sodium Chloride 0.9% 216 ml @ Per Protocol EPIDURAL .Q0M PRN Rx#: [id number] Intake, IV Titration 164.456 Amount Bupivacaine (Pf) 0.5% 31. 12.334 3 ml HYDROmorphone 5 mg In Sodium Chloride 0.9% 216 ml @ Per Protocol EPIDURAL .Q0M PRN Rx#: [id number] Propofol 500 mg In Empty 152.122 Bag 1 bag @ Titrate IV . Q0M LETY Rx#:[id number] Oral 60 Output: Urine 400 1035 250 Other: Voiding Method Indwelling Catheter Indwelling Catheter Indwelling Catheter ABP, PAP, CO, CI - Last Documented Arterial Blood Pressure 147/73 - Exam Physical exam 61-year-old male orally intubated on vent support opening eyes to verbal stimuli Lungs anterior essentially clear adequate air movement Heart S1-S2 audible and regular Abdomen surgical dressing dry 3 Saul-Garcia drains in place a few hypoactive bowel tones nasal gastric tube in place scrotal edema noted Extremities Venodyne's on to the bilateral lower extremities no edema - Labs CBC & Chem 7: 06/12/16 04:00 06/12/16 04:00 Labs: Abnormal Lab Results - Last 24 Hours (Table) 06/11/16 06/11/16 06/12/16 Range/Units 10:55 18:09 00:20 RBC (4.30-5.90) m/uL Hgb (13.0-17.5) gm/dL MCV (80.0-100.0) fL Lymphocytes # (1.0-4.8) k/uL ABG pH (7.35-7.45) ABG pCO2 (35-45) mmHg ABG pO2 (83-108) mmHg ABG HCO3 (21-25) mmol/L ABG Total CO2 (19-24) mmol/L ABG O2 Saturation (94-97) % BUN 37 H (9-20) mg/dL Creatinine 1.50 H (0.66-1.25) mg/dL Glucose 136 H (74-99) mg/dL POC Glucose (mg/dL) 109 H 104 H (75-99) mg/dL Calcium 8.1 L (8.4-10.2) mg/dL AST (17-59) U/L Total Protein 5.5 L (6.3-8.2) g/dL Albumin 3.3 L (3.5-5.0) g/dL 06/12/16 06/12/16 06/12/16 Range/Units 04:00 04:00 04:12 RBC 3.97 L (4.30-5.90) m/uL Hgb 12.9 L (13.0-17.5) gm/dL MCV 101.7 H (80.0-100.0) fL Lymphocytes # 0.5 L (1.0-4.8) k/uL ABG pH (7.35-7.45) ABG pCO2 (35-45) mmHg ABG pO2 76 L (83-108) mmHg ABG HCO3 (21-25) mmol/L ABG Total CO2 26 H (19-24) mmol/L ABG O2 Saturation (94-97) % BUN 35 H (9-20) mg/dL Creatinine (0.66-1.25) mg/dL Glucose 111 H (74-99) mg/dL POC Glucose (mg/dL) (75-99) mg/dL Calcium 8.1 L (8.4-10.2) mg/dL AST 83 H (17-59) U/L Total Protein 4.8 L (6.3-8.2) g/dL Albumin 2.8 L (3.5-5.0) g/dL 06/12/16 06/12/16 Range/Units 08:48 12:11 RBC (4.30-5.90) m/uL Hgb (13.0-17.5) gm/dL MCV (80.0-100.0) fL Lymphocytes # (1.0-4.8) k/uL ABG pH 7.32 L (7.35-7.45) ABG pCO2 53 H (35-45) mmHg ABG pO2 75 L (83-108) mmHg ABG HCO3 26 H (21-25) mmol/L ABG Total CO2 28 H (19-24) mmol/L ABG O2 Saturation 93.4 L (94-97) % BUN (9-20) mg/dL Creatinine (0.66-1.25) mg/dL Glucose (74-99) mg/dL POC Glucose (mg/dL) 117 H (75-99) mg/dL Calcium (8.4-10.2) mg/dL AST (17-59) U/L Total Protein (6.3-8.2) g/dL Albumin (3.5-5.0) g/dL Assessment and Plan Plan: Impression Postoperative respiratory failure acute on vent support anticipate extubation today Hypertension Chronic hypoxic respiratory failure Present on admission incisional hernia right inguinal area Status post 10 of June exploratory laparotomy lysis of adhesions reduction of an inguinal hernia repair of incisional inguinal hernia with mesh mobilization of the ureter bladder placement of a Garcia by urology bilateral myofascial flap advancement Operative findings large indirect inguinal hernia containing approximately one third of the small bowel Present on admission swelling in the right groin and anterior abdominal wall history of nicotine dependency greater than a 40 year history quit within the last 2 months inguinal hernia swelling progressive over the last several years Plan Continue postop surgical care ICU management per cmm inspector Pulmonary management per pulmonary service Pain control Monitor blood pressure and heart rate adjust antihypertensive meds as indicated IV fluid as ordered DVT and GI prophylaxis Further surgical recommendations pending will follow Repeat labs in the morning The above dictated assessment and findings were discussed with dr krueger . Impression and the plan of care have been dictated as directed. Ariane Dalton nurse practitioner acting as a scribe for dr krueger <Anderson Krueger W - Last Filed: 06/15/16 09:27> Subjective THe patient has not been extubated primarily respiratroy failure complicated by due to his previous underlying history of underlying lung problems from smoking and aspergillosis . Will await pulmonary recommendation for this ';postoperative respiratory failure " Otherwise Stable from the surgical standpoint. Objective - Vital Signs Vital signs: Vital Signs Temp 97.6 F 06/15/16 07:35 Pulse 74 06/15/16 07:35 Resp 20 06/15/16 07:35 BP 142/101 06/15/16 07:35 Pulse Ox 95 06/15/16 07:35 Intake & Output 06/14/16 06/15/16 06/15/16 18:59 06:59 18:59 Intake Total 120 540 Output Total 1090 1510 600 Balance -970 -970 -600 Weight 119.7 kg Intake: Oral 120 540 Output: Drainage 90 410 Right 80 160 center Abdomen 10 250 Urine 1000 1100 600 Uretheral (Garcia) 1000 500 600 Other: Voiding Method Indwelling Catheter Indwelling Catheter ABP, PAP, CO, CI - Last Documented Arterial Blood Pressure 102/82 - Labs CBC & Chem 7: 06/13/16 04:17 06/13/16 04:17 Labs: Abnormal Lab Results - Last 24 Hours (Table) 06/15/16 Range/Units 06:48 POC Glucose (mg/dL) 209 H (75-99) mg/dL Assessment and Plan (1) Incisional hernia Status: Acute (2) Inguinal hernia Status: Acute (3) Hypertension Status: Acute
--- NOTE | 2016-06-12 14:10 | CDI ---
In responding to this query, please exercise your independent professional judgment. The [facility] Coding Staff and Clinical Documentation Specialists appreciate your assistance in clarifying documentation, maintaining compliance with coding guidelines, accurately documenting patients condition and capturing severity of illness. The fact that a question is asked does not imply that any particular answer is desired or expected. Communication forms are a method of clarifying documentation and are not made part of the Legal Health Record. Thank you in advance for your clarification. Last Revision, April 2015 Mj Pepe [address] [facility] [place] [address] Documentation Clarification Form Date: 06/12/2016 1:53:00 PM From: Ann Walker Admit Date: 06/10/2016 7:02:00 AM Patient Name: Hi Collins Visit Number: [id number] Dr. Anderson Mercedes 'Postoperative respiratory failure acute' is documented in the progress notes. Patients Admitting Diagnosis: Incisional and right Inguinal Hernias Post-Operative Diagnosis: Incisional hernia and unilateral Inguinal Hernia, left cord lipoma Procedure performed: Repair of incisional and inguinal hernia, reduction of inguinal hernia, lysis of adhesions History/Risk Factors: Hypertension Possible COPD Exsmoker Chronic hypoxic respiratory failure Prolonged surgery per Pulmonary Clinical Indicators: Postoperative Respiratory failure documented Surgical procedure on 06/10 and not extubated until 06/12 Treatment: Mechanical Ventilation ICU Consults: Pulmonary In order to accurately reflect this patients severity of illness, please clarify if the post-operative diagnosis is: An expected post-procedural or post-surgical condition An unexpected post-procedural or post-surgical condition, related to the patients underlying medical comorbidities Other, please specify Unable to determine Please document in your progress notes and discharge summary in order to capture severity of illness and risk of mortality. Include clinical findings that support your diagnosis. FYI: Press F11 to launch patient chart Place X here if this finding has no clinical significance, is not applicable or if you are not able to provide any additional documentation. OSKAR
--- NOTE | 2016-06-12 14:21 | CDI ---
In responding to this query, please exercise your independent professional judgment. The [facility] Coding Staff and Clinical Documentation Specialists appreciate your assistance in clarifying documentation, maintaining compliance with coding guidelines, accurately documenting patients condition and capturing severity of illness. The fact that a question is asked does not imply that any particular answer is desired or expected. Communication forms are a method of clarifying documentation and are not made part of the Legal Health Record. Thank you in advance for your clarification. Last Revision, April 2015 Mjdileep Pepe [address] [facility] [place] [address] Documentation Clarification Form Date: 06/12/2016 2:11:00 PM From: Ann Walker Admit Date: 06/10/2016 7:02:00 AM Patient Name: Hi Collins Visit Number: [id number] Dr. Logan Guevara 'Postoperative respiratory failure' is documented in the progress notes. History/Risk Factors: Hypertension Possible COPD Exsmoker Chronic hypoxic respiratory failure Prolonged surgery per Pulmonary Clinical Indicators: Postoperative Respiratory failure documented Surgical procedure on 06/10 and not extubated until 06/12 ABG/CBG on 06/10: pH 7.24, pCO2 44, pHCO3 18 Treatment: Breathing tx Mechanical Ventilation ICU Consults: Pulmonary In your professional opinion, can you please clarify if these findings signify one of the following conditions? o Postoperative Respiratory failure with hypercapnia o Postoperative Respiratory failure with hypoxia o Other Diagnosis, please specify o Unable to determine Please document in your progress notes and discharge summary in order to capture severity of illness and risk of mortality. Include clinical findings that support your diagnosis. FYI: Press F11 to launch patient chart. Place X here if this finding has no clinical significance, is not applicable or if you are not able to provide any additional documentation. OSKAR
--- NOTE | 2016-06-12 14:27 | CDI ---
In responding to this query, please exercise your independent professional judgment. The [facility] Coding Staff and Clinical Documentation Specialists appreciate your assistance in clarifying documentation, maintaining compliance with coding guidelines, accurately documenting patients condition and capturing severity of illness. The fact that a question is asked does not imply that any particular answer is desired or expected. Communication forms are a method of clarifying documentation and are not made part of the Legal Health Record. Thank you in advance for your clarification. Last Revision, December 2014 Mjdlieep Pepe [address] [place] [address] Documentation Clarification Form Date: 06/12/2016 2:22:00 PM From: Ann Walker Admit Date: 06/10/2016 7:02:00 AM Patient Name: Hi Collins Visit Number: [id number] Dr. Donald Hopkins Patient presents with a BUN/CR/GFR of: 23/1.23/>60 History/Risk Factors: Hypertension Clinical Indicators: On 06/11 Bun 35, Cr 1.70, GFR 41 Treatment: IV fluids Consult for Medical Mgmt ICU In order to capture the severity of condition, please clarify if the condition signifies: Acute renal failure Please specify (if known): Cortical, Medullary, or Tubular Necrosis? Unable to determine Other, please specify Please document in your progress notes and discharge summary in order to capture severity of illness and risk of mortality. Include clinical findings that support your diagnosis. FYI: Press F11 to launch patient chart. Place X here if this finding has no clinical significance, is not applicable or if you are not able to provide any additional documentation. OSKAR
--- NOTE | 2016-06-12 14:35 | CDI ---
In responding to this query, please exercise your independent professional judgment. The [facility] Coding Staff and Clinical Documentation Specialists appreciate your assistance in clarifying documentation, maintaining compliance with coding guidelines, accurately documenting patients condition and capturing severity of illness. The fact that a question is asked does not imply that any particular answer is desired or expected. Communication forms are a method of clarifying documentation and are not made part of the Legal Health Record. Thank you in advance for your clarification. Last Revision, December 2014 Mj Pepe [address] [facility] [place] [address] Documentation Clarification Form Date: 06/12/2016 2:27:00 PM From: Ann Walker Admit Date: 06/10/2016 7:02:00 AM Patient Name: Hi Collins Visit Number: [id number] Dr. Donald Hopkins History/Risk Factors: Prolonged hernia surgery Postoperative Respiratory Failure on Mechanical Ventilation NPO Clinical Indicators: Labs on admission: Albumin 3.5, Total Protein 5.6 Labs on 06/11: Albumin 3.3, Total Protein 5.5 Labs on 06/12: Albumin 2.8, Total Protein 4.8 Current BMI: 33.3 Treatment: Lab monitoring Consult: Medical Mgmt In your professional opinion, can you please clarify if these findings signify one of the following conditions? Mild Protein Malnutrition Mild Protein-Calorie Malnutrition Moderate Protein Malnutrition Moderate Protein-Calorie Malnutrition Severe Protein Malnutrition Severe Protein-Calorie Malnutrition Malnutrition following GI surgery Other condition, please specify Unable to determine Please document in your progress notes and discharge summary in order to capture severity of illness and risk of mortality. Include clinical findings that support your diagnosis. FYI: Press F11 to launch patient chart. _+____ Place X here if this finding has no clinical significance, is not applicable or if you are not able to provide any additional documentation. OSKAR
[2016-06-12 18:57] LABS: Glucose,Whole Blood 100 mg/dL (75-99)
[2016-06-12] MEDS: FAMOTIDINE 20 MG/2 ML VIAL IV SCH (21:28)
--- NOTE | 2016-06-12 22:36 | PN ---
DATE OF SERVICE: 06/12/2016 PRESENTING COMPLAINT: Abdominal surgery. INTERVAL HISTORY: This is a patient who presented with large abdominal hernia, had a repair, has got [address] and a wound VAC in place. Patient has an NG tube in place, taken off the ventilator this morning. Patient has epidural anesthesia; awake, following commands. Garcia catheter in place. Review of systems done for constitutional, cardiovascular, GI, pulmonary; relevant findings as above. Current medications are reviewed that include epidural breathing treatments. On examination, pulse 93, respirations 17, blood pressure 143/73, pulse ox 94% on 6L. GENERAL APPEARANCE: Lying in bed; awake, but tired-appearing. EYES: Pupils equal. Conjunctivae normal. HEENT: NG tube in place. NECK: JVD unable to assess. Mass not palpable. RESPIRATORY: Effort increased. LUNGS: Decreased breath sounds, wheezing. CARDIOVASCULAR: First and second sounds normal. No edema. ABDOMEN: Has a wound VAC in place and [address] GENITOURINARY: Garcia catheter in place. PSYCHIATRY: Awake, following commands, lethargic. INVESTIGATIONS: White count 5, hemoglobin 12.9. Potassium 4.5, BUN and creatinine are normal. ASSESSMENT: 1. Status post abdominal hernia repair, open type, with [address] and wound VAC in place. 2. Chronic obstructive pulmonary disease in an ex-smoker. 3. Essential hypertension. 4. Postoperative ventilator support. Patient is currently off the same. 5. Nasogastric tube in place. 6. Hypoalbuminemia as an acute phase reactant. 7. Acute renal failure, likely prerenal from hypertension, now recovered, present on admission, now resolved. PLAN: Continue current medication and treatment plan. Patient is getting some IV fluids. Breathing treatments to be given. Follow.
[2016-06-13 04:51] LABS: Basophils % (A) 0 %; CH 32.7; CHCM 32.3; Eosinophils # (A) 0.1 k/uL (0-0.7); Eosinophils % (A) 1 %; HCT 39.8 % (39.0-53.0); HDW 2.57; HGB 12.9 gm/dL (13.0-17.5); Luc # (Auto) 0.18; Luc % (Auto) 3; Lymphocytes # (A) 0.5 k/uL (1.0-4.8); Lymphocytes % (A) 8 %; MCHC 32.4 g/dL (31.0-37.0); MCV 101.8 fL (80.0-100.0); Macrocytosis Slight; Mean Platelet Volume 6.9; Monocytes # (A) 0.4 k/uL (0-1.0); Monocytes % (A) 6 %; Neutrophils # (A) 5.1 k/uL (1.3-7.7); Neutrophils % (A) 83 %; RBC 3.91 m/uL (4.30-5.90); RDW 13.6 % (11.5-15.5); WBC 6.2 k/uL (3.8-10.6); WBC (Perox) 6.68
[2016-06-13 05:02] LABS: ALT 38 U/L (21-72); AST 94 U/L (17-59); Alkaline Phosphatase 55 U/L (38-126); Anion Gap 4 mmol/L; Blood Urea Nitrogen 27 mg/dL (9-20); Calcium 8.5 mg/dL (8.4-10.2); Carbon Dioxide 33 mmol/L (22-30); Chloride 106 mmol/L (98-107); Glucose 93 mg/dL (74-99); Non-African American GFR(MDRD) >60 (>60 ml/min/1.73 sqM); Potassium 4.5 mmol/L (3.5-5.1); Sodium 143 mmol/L (137-145); Total Bilirubin 0.8 mg/dL (0.2-1.3); Total Protein 5.3 g/dL (6.3-8.2)
--- NOTE | 2016-06-13 08:36 | P.PN ---
Progress Note - Text Date: 06/13/2016 Time: 722 The patient is status post, exploratory laparotomy, postoperative day number 3 The patient has no complaints of nausea vomiting or headache. The patient does not complain of any lower extremity numbness or weakness. The epidural will be discontinued this morning. Pain medicines will be provided the patient by the service.
[2016-06-13] MEDS: FAMOTIDINE 20 MG/2 ML VIAL IV SCH (09:30)
[2016-06-13 09:41] LABS: Glucose,Whole Blood 100 mg/dL (75-99)
[2016-06-13] MEDS ORDERED: BISACODYL 10 MG SUPP RECTAL STA (10:26)
--- NOTE | 2016-06-13 10:40 | P.PN ---
Subjective Patient is postop day #3 exploratory laparotomy and lysis of adhesions reduction inguinal hernia and repair of a an abdominal hernia reportedly the patient had approximately a third of the small bowel in an indirect hernia defect. Postoperatively was necessary for him to be in the intensive care unit as he was intubated. At this time he is extubated. He is awake and alert. He has not yet had return of bowel function. An NG tube was in place. SAMPSON drains are in place drainage is serosanguineous. Objective - Vital Signs Vital signs: Vital Signs Temp 98.2 F 06/13/16 08:00 Pulse 95 06/13/16 10:00 Resp 24 06/13/16 10:00 BP 140/72 06/13/16 10:00 Pulse Ox 91 L 06/13/16 10:00 Intake & Output 06/12/16 06/13/16 06/13/16 18:59 06:59 18:59 Intake Total 885 900 300 Output Total 575 980 210 Balance 310 -80 90 Weight 119.7 kg Intake: IV 825 900 300 0.9 NS 825 900 300 Oral 60 Output: Drainage 60 Left abdominal ( 10 Right 50 Urine 575 920 210 Other: Voiding Method Indwelling Catheter Indwelling Catheter Indwelling Catheter ABP, PAP, CO, CI - Last Documented Arterial Blood Pressure 102/82 - Constitutional General appearance: Present: average body habitus, no acute distress - Respiratory Details: Decreased breath sounds at the bases - Cardiovascular Rhythm: regular Heart sounds: normal: S1, S2 - Gastrointestinal Gastrointestinal Comment(s): Incision clean and dry SAMPSON in place serosanguineous drainage Hypoactive bowel sounds General gastrointestinal: Present: decreased bowel sounds - Labs CBC & Chem 7: 06/13/16 04:17 06/13/16 04:17 Labs: Abnormal Lab Results - Last 24 Hours (Table) 06/12/16 06/12/16 06/13/16 Range/Units 12:11 18:56 04:17 RBC 3.91 L (4.30-5.90) m/uL Hgb 12.9 L (13.0-17.5) gm/dL MCV 101.8 H (80.0-100.0) fL Lymphocytes # 0.5 L (1.0-4.8) k/uL Carbon Dioxide (22-30) mmol/L BUN (9-20) mg/dL POC Glucose (mg/dL) 117 H 100 H (75-99) mg/dL AST (17-59) U/L Total Protein (6.3-8.2) g/dL Albumin (3.5-5.0) g/dL 06/13/16 06/13/16 Range/Units 04:17 09:40 RBC (4.30-5.90) m/uL Hgb (13.0-17.5) gm/dL MCV (80.0-100.0) fL Lymphocytes # (1.0-4.8) k/uL Carbon Dioxide 33 H (22-30) mmol/L BUN 27 H (9-20) mg/dL POC Glucose (mg/dL) 100 H (75-99) mg/dL AST 94 H (17-59) U/L Total Protein 5.3 L (6.3-8.2) g/dL Albumin 3.0 L (3.5-5.0) g/dL Assessment and Plan Plan: Impression/plan: 1. 61 year-old male status post extensive lysis of adhesions and hernia repair 2. Awaiting return of bowel function 3. Epidural catheter to be removed 4. Garcia catheter in place
[2016-06-13] MEDS: ALVIMOPAN 12 MG CAPSULE PO SCH ×2 (10:56→20:01)
[2016-06-13] MEDS: ATENOLOL 50 MG TAB PO SCH (10:57)
[2016-06-13] MEDS: ENOXAPARIN 40 MG/0.4 ML SYRINGE SQ SCH (10:57)
[2016-06-13] MEDS: amLODIPine 10 MG TAB PO SCH (10:57)
[2016-06-13 12:23] LABS: Magnesium 2.2 mg/dL (1.6-2.3); Phosphorous 2.9 mg/dL (2.5-4.5)
[2016-06-13 12:46] VITALS: BMI 33.8
[2016-06-13] MEDS: HYDROmorphone 1 MG/ML 1 ML SYRINGE IVP PRN ×3 (13:36→21:58)
[2016-06-13] MEDS: LACTATED RINGERS 1,000 ML IV SCH ×2 (13:43→20:01)
--- NOTE | 2016-06-13 14:16 | PN ---
A 61-year-old male who was seen initially in the extended stay. He went to the operating room for a hernia repair. It was a long surgery, lasting 11 hours with multiple issues. Please see the surgeon's note for that. Anyway, the patient was initially on the ventilator. The patient was doing well. We were able to move him along to give him a daily interruption of sedation. He had excellent weaning parameters and the patient had an excellent rapid shallow breathing index with good gases and a positive cuff leak. Hence, he was extubated. Doing relatively well now. Feeling well. Sitting up in the chair. NG tube in place. Receiving nasal O2. He apparently wants his NG tube out and apparently pulled out that and a number of other of his IV's last night according to the nurse. Already seen today by Dr. Mercedes's partner Dr. Jennifer Sandoval. She was hoping to keep the patient in the unit one more day. She has some number of issues and concerns. That will be based on our ICU bed need. The patient does have a history of hypertension. Current vital signs are reviewed. Temperature 98.2, heart rate 84, respiratory rate 17, blood pressure 141/67, mean 91, saturations are 97% on 6 L. Appears in no acute distress, looks well. Sitting up in the chair. Very cantankerous this morning. HEENT examination is grossly unremarkable. Mucous membranes are moist. No oral lesions. Neck is supple. Full range of motion. No adenopathy or thyromegaly. Neck veins are flat. Cardiovascular examination reveals a regular rhythm and rate. S1, S2 normal. No S3, S4 or murmur. Lungs reveal a few scattered rhonchi. No wheezes or crackles. Breath sounds are mostly clear. Abdomen is obese. Bowel sounds are heard. Extremities are intact. There is no cyanosis, clubbing or edema. Labs are reviewed. White count 6.2, hemoglobin 12.9, hematocrit 39.8, platelet count 207,000. Sodium 143, potassium 4.5, chloride 106, CO2 of 33, BUN and creatinine were 27 and 0.8. Liver function tests look pretty good. Albumin is 3.0. Microbiology studies are either pending or negative. No recent x-ray. Medications are reviewed. From the pulmonary standpoint he remains on updrafts. ASSESSMENT: 1. Status post prolonged hernia repair but subsequent inability to extubate and ventilator-dependent respiratory failure. 2. History of hypertension. 3. Hypoxemic respiratory failure. 4. Status post prolonged hernia repair. PLAN: From my perspective, the patient is doing well. The patient seemed relatively stable, hemodynamically stable. Not manifesting any signs or symptoms of infection. He is very anxious to get his NG tube out. Will leave that up to surgery. For the time being, he can stay here in the ICU but he will be the first patient to move out of the ICU should we need the bed. No additional recommendations are made. Prognosis is guarded but relatively good.
--- NOTE | 2016-06-13 17:07 | PN ---
DATE OF SERVICE: 06/13/2016 PRESENTING COMPLAINT: Status post abdominal surgery. INTERVAL HISTORY: This patient with large abdominal hernia had a repair. Has a wound VAC in place with [address] Up in a chair. NG tube remains in place. Allowed some ice popsicles. The patient is sitting up not in distress, speaking. Review of systems done for constitutional, cardiovascular, GI, pulmonary; relevant findings as above. Current medications are reviewed and include and Duoneb, ( ) and IV fluids. On examination, temperature 98.1, pulse 79, respiratory rate 17, blood pressure 124/61, pulse 94% on 6 liters. GENERAL APPEARANCE: Sitting up in a chair, awake. EYES: Pupils equal. Conjunctivae normal. NECK: JVD unable to assess. Mass not palpable. RESPIRATORY: Effort normal. LUNGS: Decreased breath sounds. CARDIOVASCULAR: First and second sounds normal. No edema. ABDOMEN: Wound VAC in place. Drain in place. PSYCHIATRY: Awake, answering questions appropriately. INVESTIGATIONS: White count 6.2, hemoglobin 12.9, potassium 4.5, BUN 27, creatinine 0.80. ASSESSMENT: 1. Status post abdominal hernia repair, ( ) with [address] and wound VAC in place. 2. Chronic obstructive pulmonary disease in an ex-smoker. 3. Essential hypertension. 4. Postoperative ventilatory support status post. 5. Hypoalbuminemia as an acute phase reactant. 6. Acute renal failure, likely prerenal from hypotension now recovered. PLAN: Continue current medications and supportive care. The patient encouraged to walk. Follow.
[2016-06-14] MEDS: HYDROmorphone 1 MG/ML 1 ML SYRINGE IVP PRN (01:10)
--- NOTE | 2016-06-14 07:52 | P.PN ---
Subjective Patient is postop day #4 exploratory laparotomy and lysis of adhesions reduction inguinal hernia and repair of a an abdominal hernia reportedly the patient had approximately a third of the small bowel in an indirect hernia defect. Postoperatively was necessary for him to be in the intensive care unit as he was intubated. Patient is doing well at this time. He is having bowel activity. Objective - Vital Signs Vital signs: Vital Signs Temp 98.7 F 06/14/16 01:44 Pulse 88 06/14/16 01:44 Resp 16 06/14/16 01:44 BP 156/74 06/14/16 01:44 Pulse Ox 90 L 06/14/16 07:25 Intake & Output 06/13/16 06/14/16 06/14/16 18:59 06:59 18:59 Intake Total 970 300 Output Total 435 1095 Balance 535 -795 Weight 119.7 kg Intake: IV 490 0.9 NS 450 Lactated Ringers 1,000 ml 40 @ 20 mls/hr IV .Q24H LETY Rx#:[id number] Oral 480 300 Output: Drainage 45 Right 40 center Abdomen 5 Urine 435 1050 Uretheral (Garcia) 1050 Other: Voiding Method Indwelling Catheter Indwelling Catheter # Bowel Movements 1 ABP, PAP, CO, CI - Last Documented Arterial Blood Pressure 102/82 - Constitutional General appearance: Present: average body habitus - Respiratory Details: Bilateral decreased breath sounds at the bases Scattered wheezing - Cardiovascular Rhythm: regular Heart sounds: normal: S1, S2 - Gastrointestinal Gastrointestinal Comment(s): Incision site clean and dry wound VAC in place SAMPSON drains serosanguineous General gastrointestinal: Present: decreased bowel sounds - Genitourinary Genitourinary Comment(s): Scrotal swelling - Psychiatric Psychiatric: Present: A&O x's 3, appropriate affect, intact judgment & insight - Labs CBC & Chem 7: 06/13/16 04:17 06/13/16 04:17 Labs: Abnormal Lab Results - Last 24 Hours (Table) 06/13/16 Range/Units 09:40 POC Glucose (mg/dL) 100 H (75-99) mg/dL Assessment and Plan Plan: Impression/plan: 1. 61 year-old male status post extensive lysis of adhesions and hernia repair 2. Positive return of bowel function 3. Garcia catheter in place
[2016-06-14] MEDS: FAMOTIDINE 20 MG/2 ML VIAL IV SCH (08:41)
[2016-06-14] MEDS: amLODIPine 10 MG TAB PO SCH (08:41)
[2016-06-14] MEDS: ALVIMOPAN 12 MG CAPSULE PO SCH ×2 (08:41→22:19)
[2016-06-14] MEDS: ATENOLOL 50 MG TAB PO SCH (08:41)
[2016-06-14] MEDS: ENOXAPARIN 40 MG/0.4 ML SYRINGE SQ SCH (10:23)
--- NOTE | 2016-06-14 14:07 | PN ---
A 61-year-old male who we saw initially in the extended stay area/postrecovery area. The patient was initially intubated. He came out of the hernia repair after a long 11-hour surgery. There were a number of issues during the procedure which necessitated a long procedure. Anyway, we saw him on the ventilator in the extended stay area and then he eventually was seen in the ICU. He was extubated after about a day there in the ICU. Doing relatively well. Moved out to the third floor yesterday. Feeling well. Very anxious to get moving along. He was very upset yesterday that his NG tube was still in. His surgery was done by Dr. Mercedes. He is currently seeing Dr. Jennifer Sandoval. No pain. No shortness of breath. No fever, no chills. Not coughing up any phlegm. No nausea, vomiting, or diarrhea. Walking the hallway with assistance. Current vital signs are reviewed. Temperature is 98.7, heart rate 88, respiratory 16, blood pressure 131/73, mean 92, 5 liters saturation 94%. Appears in no acute distress. HEENT examination is grossly unremarkable. Mucous membranes are moist. No oral lesions. Neck is supple. Full range of motion. No adenopathy or thyromegaly. Cardiovascular examination reveals regular rhythm and rate. S1, S2 normal. No S3, S4, or murmur. Lungs reveal a few scattered rhonchi. No wheezes or crackles. ABDOMEN: Obese. Binder in place. Bowel sounds are not noted. EXTREMITIES: Intact. No cyanosis, clubbing or edema. Brief neurologic examination is nonfocal. Skin is without rash or lesions. Currently, laboratory data: Nothing new to report here. No new x-rays to report. Medications are reviewed. ASSESSMENT: 1. Status post prolonged hernia repair with subsequent postoperative respiratory failure, resolved. 2. History of hypertension. 3. Hypoxemic respiratory failure, resolved. 4. Status post prolonged hernia repair. PLAN: From my perspective, the patient is doing well. The patient was moved out of the ICU yesterday. He is currently on the third floor. Doing well. No major issues or complaints. No respiratory issues. No hemodynamic issues. Labs were not done today. No x-ray to report. Medications have been reviewed. Will continue to follow. He continues on IQcard.
[2016-06-14] MEDS: HYDROcodone/APAP 5-325MG 1 EACH TAB PO PRN (17:24)
[2016-06-14] MEDS: IPRATROPIUM-ALBUTEROL 3 ML NEB INHALATION SCH ×2 (18:21→19:54)
[2016-06-14] MEDS: BUDESONIDE 1 MG/2 ML NEBU INHALATION SCH (18:21)
[2016-06-14] MEDS: methylPREDNISolone SOD SUCCI 40 MG/ML 1 ML VIAL IV SCH ×2 (20:27→23:44)
[2016-06-14] MEDS: MELATONIN 3 MG TABLET PO SCH (22:18)
[2016-06-14] MEDS: ZOLPIDEM 5 MG TAB PO SCH (22:18)
[2016-06-15 06:57] LABS: Glucose,Whole Blood 209 mg/dL (75-99)
[2016-06-15] MEDS: BUDESONIDE 1 MG/2 ML NEBU INHALATION SCH ×2 (07:02→20:05)
[2016-06-15] MEDS: IPRATROPIUM-ALBUTEROL 3 ML NEB INHALATION SCH ×4 (07:02→20:05)
[2016-06-15] MEDS: INSULIN LISPRO (humaLOG) 300 UNIT/3 ML VIAL SQ SCH ×4 (07:42→21:41)
[2016-06-15] MEDS: ALVIMOPAN 12 MG CAPSULE PO SCH ×2 (07:43→21:41)
[2016-06-15] MEDS: FAMOTIDINE 20 MG/2 ML VIAL IV SCH (07:43)
[2016-06-15] MEDS: amLODIPine 10 MG TAB PO SCH (07:43)
[2016-06-15] MEDS: ATENOLOL 50 MG TAB PO SCH (07:43)
[2016-06-15] MEDS: methylPREDNISolone SOD SUCCI 40 MG/ML 1 ML VIAL IV SCH ×2 (07:45→17:16)
[2016-06-15] MEDS: ENOXAPARIN 40 MG/0.4 ML SYRINGE SQ SCH (07:47)
--- NOTE | 2016-06-15 08:08 | PN ---
DATE OF SERVICE: 06/14/2016 PRESENTING COMPLAINT: Abdominal surgery. INTERVAL HISTORY: This patient had a large abdominal hernia. Had a hernia repair. Wound VAC is in place with [address]. Patient is wheezing, getting some diet. Has been up to the bathroom. REVIEW OF SYSTEMS: Done for constitutional, cardiovascular, GI, pulmonary; as above, wheezing and cough. Current medications are reviewed, getting DuoNeb p.r.n. On examination, temperature 98.3, pulse 56, respiration 16, blood pressure 133/79, pulse ox 92% on 6 liters. GENERAL APPEARANCE: Sitting up, short of breath. EYES: Pupils equal. Conjunctivae normal. NECK: JVD not raised. Mass not palpable. RESPIRATORY: Effort increased. LUNGS: Decreased breath sounds, expiratory wheezing. CARDIOVASCULAR: First and second sounds normal. No edema. ABDOMEN: Tender, wound VAC in place, drains in place. PSYCHIATRY: Awake, answering questions. INVESTIGATIONS: No blood work from today. ASSESSMENT: 1. Status post abdominal hernia repair, a wound VAC in place and drains in place. 2. Acute chronic obstructive pulmonary disease exacerbation in an ex-smoker. 3. Essential hypertension. 4. Postoperative ventilatory support status post. 5. Hypoalbuminemia as an acute phase reactant. 6. Acute renal failure prerenal from hypertension on presentation now covered. PLAN: We will change patient Duoneb to every 4 hours, also nebulized bronchodilator, will give a short course of IV Solu-Medrol. Care was discussed with the patient. Patient did have a small bowel movement and passed flatus too.
--- NOTE | 2016-06-15 09:23 | P.PN ---
Subjective Principal diagnosis: s/p repair of complex abdominal wall hernia Pain well controlled. tolerating regular diet. Passing faltus. MAuylaitgn well. Still has high o 2 requirement. Objective - Vital Signs Vital signs: Vital Signs Temp 97.6 F 06/15/16 07:35 Pulse 74 06/15/16 07:35 Resp 20 06/15/16 07:35 BP 142/101 06/15/16 07:35 Pulse Ox 95 06/15/16 07:35 Intake & Output 06/14/16 06/15/16 06/15/16 18:59 06:59 18:59 Intake Total 120 540 Output Total 1090 1510 600 Balance -970 -970 -600 Weight 119.7 kg Intake: Oral 120 540 Output: Drainage 90 410 Right 80 160 center Abdomen 10 250 Urine 1000 1100 600 Uretheral (Harrison) 1000 500 600 Other: Voiding Method Indwelling Catheter Indwelling Catheter ABP, PAP, CO, CI - Last Documented Arterial Blood Pressure 102/82 - Constitutional General appearance: Present: cooperative - Cardiovascular Rhythm: regular - Gastrointestinal Gastrointestinal Comment(s): abdomens soft,. High serous drainage from the RLQ drain. Periumbilical area of wound dusky but healing. No signs of infection. Meatus of the penis has seropurulent drainage. Abdominal is soft and non tneder. - Labs CBC & Chem 7: 06/13/16 04:17 06/13/16 04:17 Labs: Abnormal Lab Results - Last 24 Hours (Table) 06/15/16 Range/Units 06:48 POC Glucose (mg/dL) 209 H (75-99) mg/dL Assessment and Plan (1) Incisional hernia Status: Acute (2) Inguinal hernia Status: Acute (3) Hypertension Status: Acute Plan: Will clamp harrison and if he has the urge will dc harrison Will keep the right sided Arthur drains Await pulmonary reccomendations on discahrge WIll start Keflex becuase of the seropurulence at the meatus. DC palnning in 24- 48 hours
[2016-06-15 12:10] LABS: Glucose,Whole Blood 161 mg/dL (75-99)
[2016-06-15] MEDS: HYDROmorphone 1 MG/ML 1 ML SYRINGE IVP PRN (13:25)
[2016-06-15] MEDS: HYDROcodone/APAP 5-325MG 1 EACH TAB PO PRN (17:15)
[2016-06-15 17:16] LABS: Glucose,Whole Blood 141 mg/dL (75-99)
[2016-06-15] MEDS: CEPHALEXIN 500 MG CAP PO SCH ×2 (17:23→21:41)
--- NOTE | 2016-06-15 19:00 | P.PN ---
Subjective 61-year-old male who I'm asked to see in the recovery/extended stay area. He apparently underwent a prolonged surgery yesterday for abdominal hernia repair. He did have a exploratory laparotomy with mesh placement. The patient was on the ventilator. I was called throughout the night for vent settings and other things to take care of this patient. Anyway the patient still down in the right extended stay area. We made some vent changes this morning. Blood gases were noted this morning. The patient remains on propofol for sedation and IV fluids. The surgery was done by one of the general surgeons. No H&P on the chart as yet. He appears to have a history of hypertension because he was on amlodipine and atenolol at home. He has no known ALLERGIES. His medications here are noted. Include DuoNeb nebs every 4 hours and Coreg amlodipine and atenolol Cepacol spray bupivacaine famotidine heparin lactated Ringer's lidocaine Narcan and propofol for sedation. The patient is seen again today 06/15/2016 in follow-up on the surgical floor. He is awake and alert in no acute distress. He is recovering well from his surgery. He is maintaining good O2 saturations in the low 90s on room air. He has been afebrile. Hemodynamically stable. His surgical pain is well controlled. He is working well with the incentive spirometer. He's been up ambulating with assistance. Objective - Vital Signs Vital signs: Vital Signs Temp 97.6 F 06/15/16 15:00 Pulse 80 06/15/16 16:20 Resp 16 06/15/16 15:00 BP 170/85 06/15/16 15:00 Pulse Ox 92 L 06/15/16 18:43 Intake & Output 06/14/16 06/15/16 06/15/16 18:59 06:59 18:59 Intake Total 120 540 600 Output Total 1090 1510 1190 Balance -970 -970 -590 Weight 119.7 kg 119.7 kg Intake: Oral 120 540 600 Output: Drainage 90 410 90 Right 80 160 40 center Abdomen 10 250 50 Urine 1000 1100 1100 Uretheral (Garcia) [id number] Other: Voiding Method Indwelling Catheter Indwelling Catheter Indwelling Catheter ABP, PAP, CO, CI - Last Documented Arterial Blood Pressure 102/82 - Exam GENERAL EXAM: Alert, active, comfortable in no apparent distress. HEAD: Normocephalic. EYES: Normal reaction of pupils, equal size. NOSE: Clear with pink turbinates. THROAT: No erythema or exudates. NECK: No masses, no JVD. CHEST: No chest wall deformity. LUNGS: Equal air entry with no crackles, wheeze, rhonchi or dullness. CVS: S1 and S2 normal with no audible murmurs, regular rhythm. ABDOMEN: Abdominal dressing is dry and intact, Saul-Garcia drains in place. Normal bowel sounds, no guarding or rigidity. SPINE: No scoliosis or deformity SKIN: No rashes CENTRAL NERVOUS SYSTEM: No focal deficits, tone is normal in all 4 extremities. Extremities: There is no significant peripheral edema. No clubbing, no cyanosis. Peripheral pulses are intact. - Labs CBC & Chem 7: 06/13/16 04:17 06/13/16 04:17 Labs: Abnormal Lab Results - Last 24 Hours (Table) 06/15/16 06/15/16 06/15/16 Range/Units 06:48 11:39 16:52 POC Glucose (mg/dL) 209 H 161 H 141 H (75-99) mg/dL Assessment and Plan Plan: Impression: #1 Abdominal hernia status post repair. #2 Postoperative respiratory failure secondary to prolonged surgery. #3 Hypertension. #4 Previous history of abdominal surgery with bowel resection back in 2011. Plan: The patient was seen and evaluated by Dr. Abreu. He is stable from the pulmonary standpoint. He is again encouraged regarding the increased use of the incentive spirometer. We'll see the patient on as-needed basis.
[2016-06-15 20:00] LABS: Glucose,Whole Blood 151 mg/dL (75-99)
[2016-06-15] MEDS: METOPROLOL TARTRATE 50 MG TAB PO SCH (21:40)
[2016-06-15] MEDS: ZOLPIDEM 5 MG TAB PO SCH (21:40)
[2016-06-15] MEDS: MELATONIN 3 MG TABLET PO SCH (21:41)
[2016-06-16] MEDS: methylPREDNISolone SOD SUCCI 40 MG/ML 1 ML VIAL IV SCH ×4 (01:00→23:53)
[2016-06-16] MEDS: METOPROLOL TARTRATE 50 MG TAB PO SCH ×2 (07:50→20:12)
[2016-06-16] MEDS: CEPHALEXIN 500 MG CAP PO SCH ×3 (07:50→21:36)
[2016-06-16] MEDS: ENOXAPARIN 40 MG/0.4 ML SYRINGE SQ SCH (07:51)
[2016-06-16] MEDS: INSULIN LISPRO (humaLOG) 300 UNIT/3 ML VIAL SQ SCH ×4 (07:51→20:36)
[2016-06-16] MEDS: amLODIPine 10 MG TAB PO SCH (07:51)
[2016-06-16] MEDS: FAMOTIDINE 20 MG TAB PO SCH (07:51)
[2016-06-16 07:53] LABS: Glucose,Whole Blood 129 mg/dL (75-99)
[2016-06-16] MEDS: IPRATROPIUM-ALBUTEROL 3 ML NEB INHALATION SCH ×4 (08:13→19:19)
[2016-06-16] MEDS: BUDESONIDE 1 MG/2 ML NEBU INHALATION SCH ×2 (08:13→19:19)
[2016-06-16] MEDS: ALVIMOPAN 12 MG CAPSULE PO SCH ×2 (08:39→21:36)
--- NOTE | 2016-06-16 08:39 | PN ---
DATE OF SERVICE: 06/15/2016 PRESENTING COMPLAINT: Abdominal surgery. HISTORY: Patient has a large abdominal hernia, patient is status post hernia repair. Wound V.A.C. was placed with three drains. Patient was wheezing, eating some, has been getting up to the bathroom. Wound V.A.C. was removed today 06/15/2016. Looks better today. Breathing better. Continues to cough up yellow phlegm. Passing gas. Review of systems done for constitutional, cardiovascular, GI, pulmonary; as above. Continues to have some wheezing and coughing. Current medications include [place] 5/325, 1 to 2 tabs every 4 hours. DuoNeb 3 mL 4 times a day, Entereg 12 mg twice daily, Norvasc 10 mg daily, budesonide 1 mg twice daily, cephalexin 500 mg 3 times a day, Lovenox 40 mg daily subcu, famotidine 20 mg daily, hydromorphone 1 mg IV push every 4 hours, insulin administered based on a sliding scale a.c. and at bedtime, melatonin 3 mg at bedtime, Solu-Medrol 40 mg every 8 hours IV, Lopressor 50 mg twice daily. On exam, temperature is 98.3, pulse 68, respirations 16, blood pressure 170/85, pulse ox 95% on 6-L. GENERAL APPEARANCE: Patient is lying in bed, looks comfortable, awake, alert. EYES: Pupils equal. Conjunctivae normal. NECK: JVD not raised. Mass is not palpable. RESPIRATORY: Effort improved. Not labored. Decreased breath sounds. Expiratory wheezing. CARDIOVASCULAR: S1, S2 noted. No edema. ABDOMEN: Tender. Wound V.A.C. is now removed. Three drains in place draining serosanguineous drainage. PSYCHIATRY: Awake, alert, answering questions. INVESTIGATIONS: Hemoglobin 12.9, remaining lab work within normal limits. ASSESSMENT: 1. Status post abdominal hernia repair. Drains remain in place draining serosanguineous drainage. Will continue to monitor. 2. Acute chronic obstructive pulmonary disease exacerbation in an ex-smoker. 3. Essential hypertension uncontrolled. Increase Lopressor to 50 mg b.i.d. 4. Postoperative ventilator support, status post abdominal hernia repair. 5. Hypoalbuminemia as an acute phase reactant. 6. Acute renal failure, prerenal from hypertension, on presentation, now covered. PLAN: We will continue to utilize DuoNeb and nebulized bronchodilator. Continue to give Solu-Medrol. Patient is currently on a taper. Patient had a small bowel movement and is passing flatus.
[2016-06-16 11:49] LABS: Glucose,Whole Blood 147 mg/dL (75-99)
--- NOTE | 2016-06-16 12:25 | P.PN ---
Subjective Principal diagnosis: s/p repair of complex abdominal wall hernia Overall the patient is doing much better tolerating a regular diet and passing flatus. Garcia catheter has been removed. He is not very ambulatory at this time. He's producing significant amount of sputum when coughing up. On this is been sent for culture. He has been successfully weaned off the oxygen at this time. However due to the significant amount of sputum and we recommended following up with pulmonology. No fever no chills. Objective - Vital Signs Vital signs: Vital Signs Temp 96.8 F L 06/16/16 07:00 Pulse 84 06/16/16 11:59 Resp 16 06/16/16 08:00 BP 168/83 06/16/16 07:00 Pulse Ox 93 L 06/16/16 07:00 Intake & Output 06/15/16 06/16/16 06/16/16 18:59 06:59 18:59 Intake Total 600 1700 Output Total 1190 1605 30 Balance -590 95 -30 Weight 119.7 kg Intake: Oral 600 1700 Output: Drainage 90 105 30 Right 40 55 15 center Abdomen 50 50 15 Urine 1100 1500 Uretheral (Garcia) 1100 1500 Other: Voiding Method Indwelling Catheter Indwelling Catheter Indwelling Catheter ABP, PAP, CO, CI - Last Documented Arterial Blood Pressure 102/82 - Constitutional General appearance: Present: cooperative - EENT Eyes: Present: PERRLA. Absent: abnormal pupil - Neck Neck: Present: normal ROM. Absent: lymphadenopathy - Cardiovascular Details: Patient is eating well small area of discoloration is noted but is not worsening. No active signs of infection. Raisa and venous drainage from both drains. Abdomen is soft and mildly tender. Incision appropriate. There is significant amount of slough. There is no peripheral edema. - Labs CBC & Chem 7: 06/13/16 04:17 06/13/16 04:17 Labs: Abnormal Lab Results - Last 24 Hours (Table) 06/15/16 06/15/16 06/16/16 Range/Units 16:52 19:58 07:50 POC Glucose (mg/dL) 141 H 151 H 129 H (75-99) mg/dL 06/16/16 Range/Units 11:45 POC Glucose (mg/dL) 147 H (75-99) mg/dL Assessment and Plan (1) Incisional hernia Status: Acute (2) Inguinal hernia Status: Acute (3) Hypertension Status: Acute Plan: The patient is doing very well. Once evaluated by pulmonology we will decide to final disposition will probably be discharged first thing in the morning tomorrow. Recommend significant amount of walking.
[2016-06-16 17:09] LABS: Glucose,Whole Blood 154 mg/dL (75-99)
[2016-06-16] MEDS: HYDROcodone/APAP 5-325MG 1 EACH TAB PO PRN (17:29)
[2016-06-16] MEDS: MELATONIN 3 MG TABLET PO SCH (20:12)
[2016-06-16 20:22] LABS: Glucose,Whole Blood 129 mg/dL (75-99)
[2016-06-16] MEDS: ZOLPIDEM 5 MG TAB PO SCH (23:53)
[2016-06-17] MEDS: HYDROcodone/APAP 5-325MG 1 EACH TAB PO PRN ×2 (02:32→05:42)
[2016-06-17 07:04] LABS: Glucose,Whole Blood 123 mg/dL (75-99)
[2016-06-17 07:40] VITALS: BP 184/98; RESP 16
[2016-06-17 07:41] VITALS: TEMP 98
[2016-06-17] MEDS: METOPROLOL TARTRATE 50 MG TAB PO SCH (08:02)
[2016-06-17] MEDS: ALVIMOPAN 12 MG CAPSULE PO SCH (08:02)
[2016-06-17] MEDS: amLODIPine 10 MG TAB PO SCH (08:02)
[2016-06-17] MEDS: FAMOTIDINE 20 MG TAB PO SCH (08:02)
[2016-06-17] MEDS: CEPHALEXIN 500 MG CAP PO SCH (08:02)
[2016-06-17] MEDS: ENOXAPARIN 40 MG/0.4 ML SYRINGE SQ SCH (08:02)
[2016-06-17] MEDS: methylPREDNISolone SOD SUCCI 40 MG/ML 1 ML VIAL IV SCH (08:02)
[2016-06-17] MEDS: INSULIN LISPRO (humaLOG) 300 UNIT/3 ML VIAL SQ SCH (08:05)
--- NOTE | 2016-06-17 08:09 | PN ---
DATE OF SERVICE: 06/15/2016 CHIEF COMPLAINT: Abdominal pain. PRESENTING COMPLAINT: Abdominal surgery. HISTORY: Patient has had a large abdominal hernia. Patient is status post hernia repair. Wound VAC was originally placed with three drains. Patient was wheezing, eating some, has been getting up to the bathroom. Wound VAC was removed on 06/15/2016. Patient looks much better today, breathing is better. Coughing up some yellow phlegm. Passing gas but no BM yet. Review of systems done for constitutional, cardiovascular, GI, pulmonary as above. Current medications include [place] 5/325 one to two tabs q.4 hours, DuoNeb 3 mL 4 times a day and p.r.n., Entereg 12 mg twice daily, Norvasc 10 mg daily, Budesonide 1 mg twice daily, cephalexin 500 mg 3 times a day, Lovenox 40 mg daily subcutaneous, famotidine 20 mg daily, hydromorphone 1 mg IV push every 4 hours, insulin administered based on sliding scale a.c. and at bedtime, melatonin 3 mg at bedtime, Solu-Medrol 40 mg every 8 hours IV push, Lopressor 50 mg twice daily. On exam, temperature 97.5, pulse 74, respirations 16, blood pressure 154/85, pulse ox 94% on room air. GENERAL APPEARANCE: Patient is lying in bed, eyes closed on approach, opened them easily, alert, oriented, no acute distress noted. EYES: Pupils are equal, conjunctivae are normal. NECK: JVD not raised, mass it not palpable. RESPIRATORY: Effort improved, unlabored, decreased breath sounds, expiratory wheezing. CARDIOVASCULAR: S1, S2, noted, no edema. ABDOMEN: Tender, three drains remains in place, draining serosanguineous drainage. PSYCHIATRY: Awake, alert, answering questions. No acute distress noted. INVESTIGATIONS: Hemoglobin 12.9, white blood cell count 6.2, basic metabolic panel within normal limits. ASSESSMENT: 1. Status post abdominal hernia repair, drains in place, draining serosanguineous drainage. Will continue to follow and will continue to monitor. 2. Acute chronic obstructive pulmonary disease exacerbation in an ex-smoker. 3. Essential hypertension, uncontrolled, increase Lopressor to 50 mg b.i.d. 4. Postoperative ventilator support, status post abdominal hernia repair. 5. Hypoalbuminemia as an acute phase reactant. 6. Acute renal failure, prerenal from hypertension on presentation, now resolved. PLAN: We will continue to utilize DuoNeb and nebulized bronchodilators. Continue to use Solu-Medrol as well. Patient is currently on a tapering dose. Patient had a small bowel movement on 06/14 and is currently passing flatus but has not had a full bowel movement as yet. Once a bowel movement has been had, patient may be discharged. Tentatively planning discharge for 06/17/2016. Rounds and a physical exam was performed on the patient by me, the nurse practitioner and attending, Dr. Hopkins. The relevant and [place] points of the H&P and diagnosis and plan and the rounding report is as dictated above.
[2016-06-17] MEDS: BUDESONIDE 1 MG/2 ML NEBU INHALATION SCH (08:18)
[2016-06-17] MEDS: IPRATROPIUM-ALBUTEROL 3 ML NEB INHALATION SCH ×2 (08:22→11:42)
[2016-06-17 08:38] VITALS: PULSE 84
--- NOTE | 2016-06-17 10:53 | P.DS ---
Providers Date of admission: 06/10/16 07:02 Expected date of discharge: 06/17/16 Attending physician: Anderson Mercedes Consults: 06/10/16 18:43 Consult Physician Routine Consulting Provider: Donald Hopkins Consult Reason/Comments: medical manaegment Do you want consulting provider notified?: Yes, Notify in am 06/10/16 22:27 Consult Physician Routine Consulting Provider: Logan Guevara Consult Reason/Comments: CRITICAL CARE/ VENT MANAGEMENT Do you want consulting provider notified?: Already Contacted Primary care physician: Stated None - Discharge Diagnosis(es) (1) Incisional hernia Current Visit: Yes Status: Acute (2) Inguinal hernia Current Visit: Yes Status: Acute (3) Hypertension Current Visit: Yes Status: Acute (4) Postoperative respiratory failure Current Visit: Yes Status: Acute Hospital Course: Mr Collins is a 61-year-old male who had recurrent inguinal hernia as well as an incisional hernia. He had a long-standing history of smoking for 40 years and he quit. He lost 30 pounds of weight. Once he was optimized as much as possible I recommended an open repair of his incisional and large inguinal hernia. Patient was admitted on June 10 and and an incisional hernia and inguinal hernia were repaired. Due to loss of domain and significant amount of bowel in the scrotum he required posterior competent separation. The procedure was prolonged. He had presented with known history of COPD with remote history of aspergillosis. Postoperatively, unexpectedly the patient was not be weaned off the vent and required ventilator support. Her respiratory decompensation was primarily due to his known underlying disease, prolonged nature of the operation , excessive fluid administration intraoperatively. He was weaned off and then extubated. Progressively improved in terms of pain control after removal of the epidural. Garcia catheter was removed. In his during his stay in the ICU the left-sided SAMPSON drain was inadvertently pulled out. The right-sided SAMPSON drain outputs have been 30-50 mL of serosanguineous. Garcia catheter was removed. He has been placed on Keflex because of his medical problems as well as small amount of seropurulent seen at the tip of the meatus. He has had no problems urinating and ambulating. He had significant amount of productive sputum. He has improved far has not grown anything. There is no signs of active infection. He will be discharged with his abdominal binder. He is recommended to ambulate and use incentive spirometry. He will follow-up in a week with me. He will follow up with pulmonology for his lung issues.He is having regular bowel movements tolerating a regular diet. Pertinent Studies: CT sans Chest X rays Procedures: Exploratroy laparotomy, repair of incisional and inguinal hernia with mesh Patient Condition at Discharge: Good Plan - Discharge Summary New Discharge Prescriptions: Albuterol Inhaler [Ventolin Hfa Inhaler] 1 - 2 puff INHALATION Q6HR PRN #1 inhaler PRN Reason: Wheezing HYDROcodone/APAP 5-325MG [[place] 5-325] 1 tab PO Q6HR PRN #30 tab PRN Reason: Pain Ipratropium [place] [Atrovent Hfa] 2 puff INHALATION QID #1 inhaler Metoprolol Tartrate [Lopressor] 50 mg PO BID #60 tab predniSONE 10 mg PO DAILY #30 tab Discharge Medication List amLODIPine BESYLATE [Norvasc] 10 mg PO DAILY 06/04/16 [History] Albuterol Inhaler [Ventolin Hfa Inhaler] 1 - 2 puff INHALATION Q6HR PRN #1 inhaler 06/16/16 [Rx] Ipratropium [place] [Atrovent Hfa] 2 puff INHALATION QID #1 inhaler 06/16/16 [Rx ] Melatonin 3 mg PO HS tablet 06/16/16 [Rx] Metoprolol Tartrate [Lopressor] 50 mg PO BID #60 tab 06/16/16 [Rx] predniSONE 10 mg PO DAILY #30 tab 06/16/16 [Rx] HYDROcodone/APAP 5-325MG [[place] 5-325] 1 tab PO Q6HR PRN #30 tab 06/17/16 [Rx] Follow up Appointment(s)/Referral(s): pcpdr [Other] - 1 Week Anderson Mercedes MD [STAFF PHYSICIAN] - 1 Week [facility], [NON-STAFF] - 1 Week Patient Instructions/Handouts: COPD (Chronic Obstructive Pulmonary Disease) (DC ), COPD (Chronic Obstructive Pulmonary Disease) (GEN), Ventral Hernia (DC), Ventral Hernia (GEN), Incisional Hernia (DC), Incisional Hernia (GEN) Activity/Diet/Wound Care/Special Instructions: Regular diet AMbulate as tolerated Use incentive spirometer as directed No driving on pain medications or when having pain May shower in 24 hours No heavy lifting more than 20 lbs for 6 weeks Discharge Disposition: HOME WITH HOME HEALTH SERVICES
[2016-06-17 11:42] LABS: Glucose,Whole Blood 107 mg/dL (75-99)
--- NOTE | 2016-06-17 20:56 | PN ---
DATE OF SERVICE: 06/15/2016 ADDENDUM: This patient was seen and examined by me. The patient was also seen and examined by nurse practitioner Ms. Kunz. The relevant points of the history/physical/diagnoses/plan were discussed with the nurse practitioner and are as dictated in her note.
--- NOTE | 2016-06-17 21:56 | PN ---
DATE OF SERVICE: 06/16/2016 PRESENTING COMPLAINT: Abdominal pain. INTERVAL HISTORY: Patient is status post large abdominal hernia repair. Wound V.A.C. was removed. Patient has drains in place. Overall doing better. Had some ( ). Breathing is much better. Has been up to the bathroom. Review of systems done for constitutional, cardiovascular, GI, pulmonary; relevant findings as above. Current medications are reviewed that include nebulized bronchodilators. On examination, temperature 97.9, pulse 74, respiration 16, blood pressure 154/85, pulse ox 94%. GENERAL APPEARANCE: Sitting up, not in distress. EYES: Pupils equal. Conjunctivae normal. NECK: JVD not raised. Mass not palpable. RESPIRATORY: Effort normal. LUNGS: Decreased breath sounds. Mild wheezing. CARDIOVASCULAR: First and second sounds normal. No edema. ABDOMEN: Soft. Mild tenderness. Drains in place. PSYCHIATRY: Alert and oriented x3. Mood and affect normal. INVESTIGATIONS: Accu-Cheks are noted. ASSESSMENT: 1. Abdominal hernia repair, improving. 2. Acute chronic obstructive pulmonary disease exacerbation in an ex-smoker. 3. Essential hypertension. 4. Hypoalbuminemia as an acute-phase reactant. 5. Acute renal failure, prerenal, from hypotension on presentation, now resolved. PLAN: Patient continues to improve. Care was discussed with patient. Encouraged to ambulate. Will follow.
--- NOTE | 2016-06-19 09:20 | PN ---
DATE OF SERVICE: 06/17/2016 PRESENTING COMPLAINT: Abdominal pain. INTERVAL HISTORY: This patient was seen by me yesterday on 06/17/2016. Patient is status post abdominal hernia repair. Continues to do much better but he is improving, up to the bathroom, had a bowel movement. Review of systems done for constitutional, cardiovascular, GI, pulmonary; relevant findings as above. Current medications are reviewed that include bronchodilations. On examination, temperature 98, pulse 62, respirations 16, blood pressure 143/81. GENERAL APPEARANCE: Sitting up, more comfortable. EYES: Pupils equal. Conjunctivae normal. NECK: JVD not raised, mass not palpable. Respiratory effort normal. LUNGS: Diminished breath sounds, though improved air entry. CARDIOVASCULAR: First and second sounds normal. No edema. ABDOMEN: Soft, nontender. Liver and spleen not palpable, drains in place. PSYCHIATRY: Alert and oriented x3. Mood and affect is normal. INVESTIGATIONS: Accu-Cheks are noted. ASSESSMENT: 1. Abdominal hernia repair. 2. Acute chronic obstructive pulmonary disease exacerbation in an ex-smoker. 3. Essential hypertension. 4. Hypoalbuminemia with an acute phase reactant. 5. Acute renal failure prerenal from hypertension on presentation, now resolved. PLAN: Patient doing much better. Patient to go home on inhalers. Patient again encouraged not to go back on smoking. Patient is rather thankful about how he was treated in the hospital. Should follow up with his family doctor.
--- NOTE | 2016-07-16 22:39 | PN ---
DATE OF SERVICE: 06/15/2016 ATTENDING NOTE: This patient was seen and examined by me on 06/15/16. I reviewed the note of my nurse practitioner, Ms. Kunz. I discussed it with her and agree with the same. Patient is status post abdominal hernia repair. Wound V.A.C. with drains in place ( ) earlier removed. Patient has some wheezing, cough with yellow sputum. On examination, afebrile. Blood pressure 130/85, pulse ox 95% on 6 L. Patient is comfortable at rest. LUNGS: Decreased breath sounds. Prolonged expiratory wheezing. CARDIOVASCULAR: First and second sounds normal. ABDOMEN: Drains in place. ASSESSMENT: 1. Status post abdominal hernia repair. Drains in place. 2. Acute chronic obstructive pulmonary disease exacerbation. PLAN: Continue with bronchodilators, Solu-Medrol, and follow.
== END 2016-06-17 14:21 | disposition home health service (06) | DRG 350 ==
LOC: 2ORWHC 07:02 → 6ICU 06-11 03:13 → 3SUR 06-13 15:26
PROVIDERS: ADMIT Surgery; ATTEND Surgery
PROC: 0WUF0JZ Supplement Abdominal Wall with Synthetic Substitute, Open Approach (ICD-10-PCS; principal; 2016-06-10 08:30)
PROC: 0KXK0Z6 Transfer Right Abdomen Muscle, Transverse Rectus Abdominis Myocutaneous Flap, Open Approach (ICD-10-PCS; principal; 2016-06-10 08:30)
PROC: 0YUA0JZ Supplement Bilateral Inguinal Region with Synthetic Substitute, Open Approach (ICD-10-PCS; principal; 2016-06-10 08:30)
PROC: 0KXL0Z6 Transfer Left Abdomen Muscle, Transverse Rectus Abdominis Myocutaneous Flap, Open Approach (ICD-10-PCS; principal; 2016-06-10 08:30)
PROC: 0T7D7ZZ Dilation of Urethra, Via Natural or Artificial Opening (ICD-10-PCS; 2016-06-10 08:30)
DX: K43.2 Incisional hernia without obstruction or gangrene (principal); J96.21 Acute and chronic respiratory failure with hypoxia; N17.9 Acute kidney failure, unspecified; K40.30 Unilateral inguinal hernia, with obstruction, without gangrene, not specified as recurrent; J44.1 Chronic obstructive pulmonary disease with (acute) exacerbation; E88.09 Other disorders of plasma-protein metabolism, not elsewhere classified; I10 Essential (primary) hypertension; D17.6 Benign lipomatous neoplasm of spermatic cord; F17.210 Nicotine dependence, cigarettes, uncomplicated; K66.0 Peritoneal adhesions (postprocedural) (postinfection); N47.1 Phimosis; Z79.899 Other long term (current) drug therapy; N35.9 Urethral stricture, unspecified
CPT/HCPCS: 71010; 80048; 80053; 82805; 83735; 84100; 84484; 85025; 86850; 86900; 86901; 87070; 87205; 94002; 94003; 94640; 94760

== ENCOUNTER → 2016-07-07 | Outpatient (CLI) | payer OTHER ==
--- NOTE | 2016-07-07 13:32 | CT ---
EXAMINATION TYPE: CT abdomen pelvis w con DATE OF EXAM: 07/07/2016 1:19 PM COMPARISON: 02/05/2016 HISTORY: Abdomen swelling CT DLP: 2579.8 mGycm CONTRAST: CT scan of the abdomen and pelvis is performed without Oral Contrast and with IV Contrast, patient in jected with 100 mL of Omnipaque 300. FINDINGS: LUNG BASES-: No visible nodule. No infiltrate. LIVER/GB: No calcified gallstones. No space occupying hepatic lesion. Biliary tree is of normal ca liber. PANCREAS: No inflammation. No distinct mass. SPLEEN: No splenic enlargement. No lesion seen. ADRENALS: Bilateral adrenal masses are nonspecific and appear to be stable. In the absence of the leny chandrakant malignancy consider bilateral adrenal prominence. KIDNEYS/BLADDER: No hydronephrosis. No nephrolithiasis. No disctinct renal mass. Urinary bladder g rossly unremarkable. BOWEL: Normal appendix. Normal bowel caliber. No inflammation. GENITAL ORGANS: No gross abnormality. LYMPH NODES: No greater than 1cm abdominal or pelvic lymph nodes are appreciated. AORTA: No significant abnormality. OSSEOUS STRUCTURES: Degenerative changes of the lumbar spine. OTHER: There is been ventral hernia repair with midline skin bk identified. There is a subcutane ous collection noted measuring approximately 17 cm craniocaudal dimension by 9.3 cm transverse dimens ion by 6.1 cm AP dimension. Internal air is identified. This may reflect postoperative seroma. Infect ed collection is not excluded. There is no evidence for recurrent abdominal wall hernia. Postoperativ e changes anterior abdominal wall. Large right inguinal hernia contains moderate fluid some of which appears to be thick-walled and may also be postoperative in nature. Again superimposed infection is n ot excluded. IMPRESSION: 1. Ventral hernia repair with the midline subcutaneous collection as discussed may reflect postoperat tarah seroma however infected collection is not excluded. 2. Right inguinal hernia repair also noted. There is thick walled fluid collections extending into th e right inguinal canal and right scrotal sac which may also reflect postoperative seroma and/or infec milton collection.
[2016-07-07 13:44] LABS: Basophils % (A) 1 %; CH 32.4; CHCM 32.2; Eosinophils # (A) 0.3 k/uL (0-0.7); Eosinophils % (A) 5 %; HCT 37.2 % (39.0-53.0); HDW 2.84; HGB 11.6 gm/dL (13.0-17.5); Luc # (Auto) 0.14; Luc % (Auto) 3; Lymphocytes # (A) 0.7 k/uL (1.0-4.8); Lymphocytes % (A) 13 %; MCH 31.6 pg (25.0-35.0); MCHC 31.2 g/dL (31.0-37.0); MCV 101.1 fL (80.0-100.0); Macrocytosis Slight; Mean Platelet Volume 6.7; Monocytes # (A) 0.4 k/uL (0-1.0); Monocytes % (A) 7 %; Neutrophils # (A) 3.9 k/uL (1.3-7.7); Neutrophils % (A) 72 %; RBC 3.67 m/uL (4.30-5.90); RDW 14.3 % (11.5-15.5); WBC 5.4 k/uL (3.8-10.6); WBC (Perox) 5.09
== END | disposition home or self-care (01) ==
LOC: RADCTMAIN 12:27
PROVIDERS: ATTEND Surgery
DX: K43.9 Ventral hernia without obstruction or gangrene (principal); Z98.890 Other specified postprocedural states
CPT/HCPCS: 85025; 74177; Q9967

== ENCOUNTER 2016-07-09 13:01 | Day surgery (SDC) | payer OTHER ==
[2016-07-08 13:16] VITALS: BMI 30.3
[~2016-07-09 13:01] MED LIST changes: -HEPARIN SODIUM,PORCINE 5,000 UNIT/ML 1 ML VIAL SQ ONE; +LACTATED RINGERS 1,000 ML IV SCH; -MIDAZOLAM 2 MG/2 ML VIAL IV PRN; +Pre Op ABX Message 1 EACH MISC MISCELLANE ONE; -SODIUM CHLORIDE 0.9% 1,000 ML IV ONE; -ceFAZolin 2 GM in SODIUM CHLORIDE 0.9% 100 ML IVPB ONE
[2016-07-09 13:55] VITALS: TEMP 97.7
[2016-07-09] MEDS ORDERED: HEPARIN SODIUM,PORCINE 5,000 UNIT/ML 1 ML VIAL SQ ONE (15:24)
[2016-07-09] MEDS ORDERED: MIDAZOLAM 2 MG/2 ML VIAL ONE (15:37)
[2016-07-09] MEDS ORDERED: SUCCINYLCHOLINE CHLORIDE 100 MG/5 ML SYR IV ONE (15:37)
[2016-07-09] MEDS ORDERED: PROPOFOL 10 MG/ML 20 ML VIAL IV ONE (15:37)
[2016-07-09] MEDS ORDERED: LIDOCAINE 1% INJ 10MG/ML (20 ML MDV) ONE (15:37)
[2016-07-09] MEDS ORDERED: SODIUM CHLORIDE 0.9% 50 ML with ceFAZolin 2,000 MG IV ONE ×2 (16:00)
--- NOTE | 2016-07-09 16:41 | P.OP ---
Date of Procedure: 07/09/16 Preoperative Diagnosis: Suspected infected seroma s/p hernia repai Postoperative Diagnosis: Seroma Procedure(s) Performed: Drainage of seroma and placement of wound vac Implants: Anesthesia: TACOSA Surgeon: Anderson Mercedes Pathology: other (culture of the seroma) Condition: stable Disposition: PACU Indications for Procedure: A 61-year-old male who underwent a posterior competent separation postoperatively he continued excessive activity. He did not take care of his drains are monitor the output. There plugs broke off and he was plugging those holes with the matchsticks. Due to the fact that he was using matchsticks to plug the empyting port of the wood drain and not properly tracking the output, I decided to pull the WOOD drains after removal of the WOOD drain he developed a seroma on the right side of the abdomen. This was confirmed on computed tomography scan. Later on the patient's midline incision broke down and there was drainage of the seroma through that. Computed tomography scan had shown some air bubbles within the seroma which is possibly related to this breakdown. Although the fluid from the breakdown was clear due to the fact there were air bubbles in the region there was significant amount of erythema and cellulitis changes on the abdominal wall decision was made to recommend drainage of the seroma culture and placement of the wound VAC due to there possibly being an infected seroma/abscess. Operative Findings: clear multiloculated seroma Skin necrosis near the umbilicus Description of Procedure: Patient identified in the preop operating holding area and appropriate informed consent was obtained. Patient taken the operating room placed in supine position given general anesthesia with endotracheal intubation the patient's abdomen was prepped and draped in the usual sterile surgical fashion multiple bk were removed after which the incision was made through the area of necrotic tissue and skin of the umbilicus was deepened into the cavity of the seroma. This was then sent for culture. The cavity itself was then completely sucked dry with the help of suction. There was clear fluid therefore no further irrigation was attempted. Appropriately cut sponge was placed in it and a VAC dressing was applied and the continues pressure 100 mmHg. Small open wounds on the abdominal wall were curetted and cleaned. Triple antibiotic with Band-Aid were applied and those incisions. Patient ordered procedure well there were no complications he was extubated and taken to recovery room in stable condition.
[2016-07-09 18:14] VITALS: BP 163/94; PULSE 87; RESP 18
== END 2016-07-09 18:23 | disposition home health service (06) ==
LOC: OR 13:01
PROVIDERS: ATTEND Surgery
DX: L76.34 Postprocedural seroma of skin and subcutaneous tissue following other procedure (principal); I96 Gangrene, not elsewhere classified; I10 Essential (primary) hypertension; J44.9 Chronic obstructive pulmonary disease, unspecified; Z79.2 Long term (current) use of antibiotics; Z79.82 Long term (current) use of aspirin; Z79.899 Other long term (current) drug therapy; Z79.1 Long term (current) use of non-steroidal anti-inflammatories (NSAID); Z87.891 Personal history of nicotine dependence
CPT/HCPCS: 87070; 87205; 87075; 10140; J2250; J1644; J1100; J2405; J2001; J0690; J0330; J2704

== ENCOUNTER → 2016-09-03 | Outpatient (CLI) | payer OTHER ==
--- NOTE | 2016-09-03 08:29 | CT ---
EXAMINATION TYPE: CT abdomen pelvis wo con DATE OF EXAM: 09/03/2016 HISTORY: cutaneous abscess abdominal wall per order. CT DLP: 1169.10 mGycm. Automated Exposure Control for Dose Reduction was Utilized. TECHNIQUE: CT scan of the abdomen and pelvis is performed without oral or IV contrast. COMPARISON: CT abdomen and pelvis July 07, 2016 FINDINGS: Within the limitations of a non-contrast study, the following observations are made. LUNG BASES: Some linear scarring anteriorly in both lung bases is redemonstrated. LIVER/GB: No significant abnormality is appreciated. PANCREAS: No significant abnormality is seen. SPLEEN: No significant abnormality is seen. ADRENALS: There is stable 2.8 x 2.0 cm low dense right adrenal mass on axial image 18 redemonstrated and 3.1 x 2.7 cm left adrenal mass on axial image 22 redemonstrated, Hounsfield units are less than 1 0 for both lesions, imaging characteristics are consistent with benign lipid rich adenomas. KIDNEYS: No significant abnormality is seen. BOWEL: No suspicious small or large bowel dilatation is present. Some diverticula are seen in the sig moid colon. There is recurrent bowel containing right inguinal hernia now identified in best on coron al image 36 causing mass effect on the scrotal contents which are not completely imaged on this study . Clips from prior surgery are redemonstrated at this level. Previously visualized thin-walled fluid collections worrisome for abscesses are not identified on current study. GENITAL ORGANS: Some central zone calcifications are seen in normal size prostate gland. LYMPH NODES: No greater than 1cm abdominal or pelvic lymph nodes are appreciated. OSSEOUS STRUCTURES: Osseous structures are demineralized. Levoconvex scoliosis is seen. There is mult ilevel moderate to severe spurring with vacuum disc phenomenon and disc space narrowing. Most pronoun randy narrowing and sclerosis is left L5-S1 level. OTHER: There is some thinning and anterior protrusion of the anterior rectus sheath with overlying cu rvilinear density may reflect mesh from hernia wall repair. There is long segment vertical scar seen best on coronal images. No worrisome fluid collection is seen on current study with successful interv al treatment of complex subcutaneous fluid collection just right of midline identified on prior exam. There is interval resolution of skin thickening and mild diffuse adjacent subcutaneous edema. There is mild atherosclerotic change of aorta extending into pelvic branch vessels redemonstrated. IMPRESSION: 1. Interval successful treatment response to anterior abdominal wall fluid collection suspected absce ss. 2. Recurrent bowel containing right inguinal hernia is however noted. No obstruction evident otilio lorenz.
== END | disposition home or self-care (01) ==
LOC: RADCTMAIN 07:14
PROVIDERS: ATTEND Surgery
DX: K40.91 Unilateral inguinal hernia, without obstruction or gangrene, recurrent (principal)
CPT/HCPCS: 74176

== ENCOUNTER → 2016-11-24 | Outpatient (CLI) | payer OTHER ==
--- NOTE | 2016-11-24 15:21 | CT ---
EXAMINATION TYPE: CT abdomen pelvis w con DATE OF EXAM: 11/24/2016 COMPARISON: CT abdomen and pelvis September 03, 2016 HISTORY: Hernia and claudication per order. Stomach and groin pain per patient. CT DLP: 1535.6 mGycm, Automated Exposure Control for Dose Reduction was Utilized. CONTRAST: CT scan of the abdomen and pelvis is performed with oral and with IV Contrast, patient injected with 100 mL of Omnipaque 300. FINDINGS: LUNG BASES: Minimal linear scarring in both lung bases anteriorly is redemonstrated. LIVER/GB: No significant abnormality is appreciated. PANCREAS: No significant abnormality is seen. SPLEEN: No significant abnormality is seen. ADRENALS: There is redemonstration of 2.7 cm left adrenal mass stable in size. There is redemonstrati on of 3.1 x 1.9 cm right adrenal mass. Both have Hounsfield units less than [address] cons istent with benign lipid rich adenomas. KIDNEYS: No significant abnormality is seen. BOWEL: Oral contrast does not reach colonic level making evaluation of distal bowel suboptimal. There is no suspicious small or large bowel dilatation. Surgical sutures near level of cecum are felt pres ent similar to prior. There is mild wall thickening near level of hepatic flexure into proximal trans verse colon. A colitis at this level cannot be excluded. Clinical correlation advised. Sigmoid coloni c diverticulosis is redemonstrated without CT evidence for acute diverticulitis. There is persistent right inguinal hernia containing contrast-filled nondilated small bowel loops. Persistent mass effect on scrotum and penis is redemonstrated. PROSTATE/SEMINAL VESICLES: Central zone calcifications are seen in normal size prostate gland. LYMPH NODES: No greater than 1cm abdominal or pelvic lymph nodes are appreciated. OSSEOUS STRUCTURES: Spine is straightened on sagittal images. Underlying scoliosis redemonstrated red emonstrated. There is moderate to advanced multilevel disc space narrowing and spurring with multilev el vacuum disc phenomenon redemonstrated. OTHER: There is evidence of prior ventral wall hernia repair with curvilinear density or mesh materi al. No recurrent defect or hernia is seen. Overlying vertical scar is redemonstrated. There is mild to moderate atherosclerotic change of aorta extending into branch vessels. IMPRESSION: Overall stable findings, persistent bowel containing right inguinal hernia without obstru ction. No recurrent ventral wall hernia identified.
== END | disposition home or self-care (01) ==
LOC: RADUSWWP 14:17
PROVIDERS: ATTEND Surgery
DX: K40.90 Unilateral inguinal hernia, without obstruction or gangrene, not specified as recurrent (principal)
CPT/HCPCS: 74177; Q9967

== ENCOUNTER → 2017-10-26 | Outpatient (CLI) | payer SELFPAY ==
[2017-10-26 12:10] LABS: ALT 49 U/L (21-72); AST 40 U/L (17-59); Cholesterol 122 mg/dL (<200); HDL Cholesterol 43 mg/dL (40-60); LDL Cholesterol,Calculated 61 mg/dL (0-99); Triglycerides 89 mg/dL (<150)
== END | disposition home or self-care (01) ==
LOC: LABWHC1 11:09
PROVIDERS: ATTEND Internal Medicine Cardiovascular Disease
DX: E78.2 Mixed hyperlipidemia (principal)
CPT/HCPCS: 36415; 80061; 84450; 84460